=== PATIENT | female | born 1970 | race Caucasian/White ===

== ENCOUNTER 2022-01-27 08:15 | Outpatient (RCR) | payer OTHER, SELFPAY | END 2022-03-15 15:14 | disposition home or self-care (01) | PROVIDERS: PCP Family Medicine; Referring Provider Physician Assistant Surgical; Visit Provider Physician Assistant | DX: S82.142D Displaced bicondylar fracture of left tibia, subsequent encounter for closed fracture with routine healing (principal); Z51.89 Encounter for other specified aftercare | CPT/HCPCS: 97110; 97116; 97140; 97163 ==

== ENCOUNTER 2022-03-06 10:13 | Outpatient (CLI) | payer OTHER, SELFPAY ==
[2022-03-06 11:55] LABS: Cholesterol* 261 mg/dL (90-199)
[2022-03-06 11:56] LABS: Glucose* 101 mg/dL (60-115); HDL Cholesterol* 60 mg/dL (>=50); LDL Cholesterol Calculated 176 mg/dL (<100); Triglycerides* 126 mg/dL (40-149)
== END 2022-03-06 10:14 | disposition home or self-care (01) ==
PROVIDERS: PCP Family Medicine; Visit Provider Obstetrics & Gynecology
DX: Z01.419 Encounter for gynecological examination (general) (routine) without abnormal findings (principal); E78.5 Hyperlipidemia, unspecified; Z13.1 Encounter for screening for diabetes mellitus
CPT/HCPCS: 80061; 82947

== ENCOUNTER 2023-04-10 10:56 | Outpatient (CLI) | payer OTHER, SELFPAY | END 2023-04-10 10:57 | disposition home or self-care (01) | PROVIDERS: PCP Family Medicine; Visit Provider Obstetrics & Gynecology | DX: Z01.419 Encounter for gynecological examination (general) (routine) without abnormal findings (principal); Z13.1 Encounter for screening for diabetes mellitus; Z13.6 Encounter for screening for cardiovascular disorders | CPT/HCPCS: 80061; 82947 ==

== ENCOUNTER 2023-05-17 10:11 | Outpatient (CLI) | payer OTHER, SELFPAY | END 2023-05-17 10:12 | disposition home or self-care (01) | PROVIDERS: PCP Family Medicine; Visit Provider Family Medicine | DX: E78.5 Hyperlipidemia, unspecified (principal); K59.00 Constipation, unspecified; K62.5 Hemorrhage of anus and rectum | CPT/HCPCS: 82728; 84443 ==

== ENCOUNTER 2023-10-07 16:36 | Emergency (ER) | payer OTHER, SELFPAY ==
[2023-10-07 16:39] VITALS: BP 138/89; PULSE 58; RESP 16; TEMP 35.9; O2SAT 96; BMI 33.9
--- NOTE | 2023-10-07 17:10 | CRLHL7_ITS ---
For Patients: As a result of the Century Cures Act, medical imaging exams and procedure reports are released immediately into your electronic medical record. You may view this report before your referring provider. If you have questions, please contact your health care provider. DATE: 10/07/2023 CLINICAL HISTORY: Patient with vertigo. TECHNIQUE: Standard helical CT image acquisition of the neck up to the skull base after bolus intravenous contrast enhancement. 2D and 3D MIP images for post-processing were performed and interpreted on an independent workstation and 3D images were permanently archived. COMPARISON: CT same day. FINDINGS: The origins of the great vessels from the aortic arch are patent. The origin of the right vertebral artery is patent. The origin of the left vertebral artery is patent. The common carotid arteries are patent. There is no stenosis at the origin of the right internal carotid artery. There is no stenosis at the origin of the left internal carotid artery. The rest of the cervical segments of the internal carotid arteries are patent up to the skull base. The left vertebral artery is dominant. The cervical segments of the vertebral arteries are patent up to the skull base. The visualized lung apices are unremarkable. The thyroid gland demonstrates 1.7cm hypodense nodule in its right lobe. The soft tissues of the neck are unremarkable. There are degenerative changes in the cervical spine. IMPRESSION: 1. Patent cervical vasculature. 2. 1.7cm hypodense right thyroid nodule. Further evaluation with ultrasound is recommended. Please note that all CT scans at this facility use dose modulation, iterative reconstruction, and/or weight-based dosing when appropriate to reduce radiation dose to as low as reasonably achievable. Dictated by Tito Felix MD @ 10/07/2023 7:05:22 PM (Electronically Signed)
--- NOTE | 2023-10-07 17:10 | CRLHL7_ITS ---
For Patients: As a result of the Century Cures Act, medical imaging exams and procedure reports are released immediately into your electronic medical record. You may view this report before your referring provider. If you have questions, please contact your health care provider. Indication: Fall, vertigo. Technique: Noncontrast CT of the head with multiplanar reconstruction utilizing bone and soft tissue algorithms. Comparison: None available. Findings: No acute intracranial hemorrhage. The park-white matter interface is preserved. The ventricles are normal in size. There is no significant midline shift. No calvarial fracture is identified. The orbits are unremarkable. The imaged paranasal sinuses and mastoid air cells are predominantly clear. Impression: No acute intracranial abnormality. Please note that all CT scans at this facility use dose modulation, iterative reconstruction, and/or weight-based dosing when appropriate to reduce radiation dose to as low as reasonably achievable. Dictated by Will Liang MD @ 10/07/2023 6:10:00 PM (Electronically Signed)
--- NOTE | 2023-10-07 17:10 | CRLHL7_ITS ---
For Patients: As a result of the Century Cures Act, medical imaging exams and procedure reports are released immediately into your electronic medical record. You may view this report before your referring provider. If you have questions, please contact your health care provider. DATE: 10/07/2023 CLINICAL HISTORY: Patient with vertigo. TECHNIQUE: Standard helical CT image acquisition through the intracranial circulation following intravenous administration of contrast material with bolus tracking. 2D and 3D MIP images for post-processing were performed and interpreted on an independent workstation and 3D images were permanently archived. COMPARISON: CT same day. FINDINGS: There is no cerebral aneurysm or large vessel occlusion. The right internal carotid artery is normal. The right middle cerebral artery and its branches are normal. The right anterior cerebral artery and its branches are normal. The left internal carotid artery is normal. The left middle cerebral artery and its branches are normal. The left anterior cerebral artery and its branches are normal. The anterior communicating artery is well visualized and appears normal. The right vertebral artery and PICA are normal. The left vertebral artery and PICA are normal. The left vertebral artery is dominant. The basilar artery is patent and appears normal. The right posterior cerebral artery is normal. The left posterior cerebral artery is normal. The visualized venous structures are patent. IMPRESSION: Patent proximal intracranial vasculature without intracranial aneurysms. Please note that all CT scans at this facility use dose modulation, iterative reconstruction, and/or weight-based dosing when appropriate to reduce radiation dose to as low as reasonably achievable. Dictated by Tito Felix MD @ 10/07/2023 7:06:39 PM (Electronically Signed)
--- NOTE | 2023-10-07 17:16 | ED_ITS ---
HPI - General Adult General Chief complaint: Dizziness/Vertigo Stated complaint: Day 12 of Vertigo, Neida said go to ED Time Seen by Provider: 10/07/23 16:38 Source: patient Mode of arrival: ambulatory Limitations: no limitations History of Present Illness HPI narrative: 53-year-old female coming in today complaining of day 12 of vertigo. Patient states that she sits completely still the vertical does go away with any movement to any side the vertigo comes back. She describes as a room spinning around her. Makes her feel nauseated but she denies vomiting. States that for the last 12 days she has tried to move his little as possible. She denies any fevers or chills. She denies headache. She denies changes in her vision. She denies any ringing in her ears or muffled hearing. She denies difficulty eating or breathing. She denies any chest discomfort. She denies any neck pain. She denies any new physical activities. She states she has been sleeping very well at night. Patient does have an adie pupil on the right side. Related Data Previous Rx's ?Medication ?Instructions ?Recorded meclizine 25 mg tablet 25 mg PO BID #10 tabs 09/27/23 ondansetron 4 mg disintegrating 4 mg PO Q8H PRN nausea and 09/27/23 tablet vomiting #10 tabs Allergies Allergy/AdvReac Type Severity Reaction Status Date / Time No Known Allergies Allergy Verified 10/07/23 17:34 Review of Systems Status of ROS: Reports: 10 or more systems reviewed and unremarkable except as noted in History and below [facility] Medical History Genetic testing ?Z13.79 - Encounter for other screening for genetic and chromosomal anomalies (ICD-10) Dyslipidemia ?E78.5 - Hyperlipidemia, unspecified (ICD-10) Tibial plateau fracture, left (10/2021) ?S82.142A - Displaced bicondylar fracture of left tibia, initial encounter for closed fracture (ICD-10) History of herniated intervertebral disc ?Z87.39 - Personal history of other diseases of the musculoskeletal system and connective tissue (ICD-10) Malignant neoplasm of both breasts (11/2016) ?C50.911 - Malignant neoplasm of unspecified site of right female breast (ICD-10) ?C50.912 - Malignant neoplasm of unspecified site of left female breast (ICD- 10) Surgical History Status post bilateral mastectomy (12/27/16) ?Z90.13 - Acquired absence of bilateral breasts and nipples (ICD-10) History of reconstruction of both breasts (04/2017) ?Z98.890 - Other specified postprocedural states (ICD-10) History of dilation and curettage (2005) ?Z98.890 - Other specified postprocedural states (ICD-10) History of bilateral oophorectomy (03/2017) ?Z90.722 - Acquired absence of ovaries, bilateral (ICD-10) Family History Father Basal cell carcinoma Myocardial infarction Diabetes Sister Basal cell carcinoma Depression Dave syndrome Aunt Breast cancer Family/Other Breast cancer Brother Colon cancer, Onset Age: 61 Bipolar disorder Family/Other Dave syndrome Ovarian cancer Social History Narrative: , 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, 2 kids Does not exercise Non-smoker, quit 2010 years very light smoking Rare alcohol use What is your current living situation?: I presently have a place to live Problems where you live: no known problems In the past 12 months, utilities in danger of being shut off: no In past 12 months, lack of transportation kept you from medical appts, meetings, work, or getting things needed for daily living: no In the past 12 mos, have been you worried that your food would run out before you had money to buy more?: never true In the past 12 mos, the food you bought just didn't last and you didn't have money to buy more?: never true Highest level of school completed/degree received: high school graduate Smoking Status: Never smoker Do you use any of these nicotine containing products: None Second hand tobacco smoke exposure: No How often do you have a drink containing alcohol: monthly or less AUDIT-C Alcohol total score: 1 Non-prescribed substance use: denies use Are you now , , , , never or living with a partner: Social isolation score (0-1 are the most socially isolated patients): 0 How often does anyone, including family, friends and others, physically hurt you : never How often does anyone, including family, friends and others, insult or talk down to you: never How often does anyone, including family, friends and others, threaten you with harm: never How often does anyone, including family, friends and others, scream or curse at you: never Little interest or pleasure in doing things: not at all Feeling down, depressed, or hopeless: not at all Do you think of yourself as: straight/heterosexual Gender Identity: female Exam Narrative: Exam Narrative: Well-nourished well-developed patient in no acute distress. Alert and oriented. Answers questions appropriately. Mood and affect are appropriate. Thoughts are goal oriented and rational. No tangential or magical thinking noted. Patient speaks in full sentences without needing to catch her breath. Patient sits very still. Patient complains of vertigo if she looks slightly to the left or to the right. HEENT: Normocephalic atraumatic. Pupils are round reactive to light on the left, the right pupil does not react at all. Patient states that this is normal for her.. Extraocular muscles are intact. Conjunctivae are moist without any icterus noted. Moist mucous membranes. Posterior pharynx is normal. Neck is soft without any lymphadenopathy or thyromegaly. No masses are appreciated. Cardiovascular: Heart is regular rate and rhythm S1 and S2 are present without any murmurs. Lungs: Clear to auscultation bilaterally no wheezes rhonchi or rales are appreciated. Abdomen: Soft and nontender nondistended with normal bowel sounds. Extremities: Bilateral lower extremities are without edema. Skin: Well perfused without any obvious rashes. Strength is 5/5 of the upper and lower extremities. Reflexes are 2+ and symmetric at the knees. Cranial nerves 3-12 are normal. [id number] is normal but causes vertigo. Patient has no nystagmus either horizontally or vertically at rest. Hallpike maneuver was done and patient has almost vertical nystagmus when she lays back and looks to the left. This causes significant vertigo. She is symptomatic when she goes to the right but she has no nystagmus and she states that the symptoms are not near what they are when she goes to the left. Const: Vital Signs, click to edit/add: Vital Signs - 24 hr 10/07/23 16:39 10/07/23 18:02 10/07/23 18:03 Temperature 96.7 F L Pulse Rate 49 L 51 L Pulse Rate [Right Pulse Oximeter] 58 L Respiratory Rate 16 Blood Pressure 145/77 H Blood Pressure [Ri ght Upper Arm] 138/89 Pulse Oximetry 96 99 98 Oxygen Delivery Me thod Room Air 10/07/23 18:15 Temperature Pulse Rate 46 L Pulse Rate [Right Pulse Oximeter] Respiratory Rate Blood Pressure Blood Pressure [Ri ght Upper Arm] Pulse Oximetry 96 Oxygen Delivery Me thod Course Course ED Course: Given patient's slightly abnormal Hallpike maneuver test with vertical nystagmus when going to the left and the duration of her symptoms, I do not think that it would be unreasonable for us to rule out a stroke or brain pathology. Therefore head CT, head and neck CTA were all ordered. Head CT was unremarkable. Lab work included a CBC which was unremarkable. Normal chemistries. Glucose within normal limits at 117. Normal LFTs. Normal troponin TSH: Vital Signs Vital signs: Initial Vital Signs Temperature 96.7 F L 10/07/23 16:39 Temperature Source Temporal Artery Scan 10/07/23 16:39 Pulse Rate 58 L 10/07/23 16:39 Pulse Rhythm Regular 10/07/23 16:39 Pulse Strength 3+ Normal 10/07/23 16:39 Respiratory Rate 16 10/07/23 16:39 Blood Pressure 138/89 10/07/23 16:39 Blood Pressure Mean 105 10/07/23 16:39 Blood Pressure Position Sitting 10/07/23 16:39 Pulse Oximetry 96 10/07/23 16:39 Oxygen Delivery Method Room Air 10/07/23 16:39 Vital Signs Temperature 96.7 F L 10/07/23 16:39 Pulse Rate 58 L 10/07/23 16:39 Respiratory Rate 16 10/07/23 16:39 Blood Pressure 138/89 10/07/23 16:39 Pulse Oximetry 96 10/07/23 16:39 Oxygen Delivery Method Room Air 10/07/23 16:39 Temperature 96.7 F L 10/07/23 16:39 Pulse Rate 46 L 10/07/23 18:15 Respiratory Rate 16 10/07/23 16:39 Blood Pressure 145/77 H 10/07/23 18:02 Pulse Oximetry 96 10/07/23 18:15 Oxygen Delivery Method Room Air 10/07/23 16:39 Medical Decision Making Lab Data Labs: Lab Results 10/07/23 Range/Units 17:15 WBC 5.36 (4.50-11.00) K/uL RBC 4.52 (4.00-5.20) m/uL Hgb 14.0 (12.0-16.0) gm/dL Hct 39.9 (33.0-51.0) % MCV 88 (80-100) fL MCH 31 (26-34) pg MCHC 35 (32-36) gm/dL RDW Coeff of William 11.4 L (11.5-15.5) % Plt Count 289 (140-440) K/uL Neut % (Auto) 50.0 (42.0-72.0) % Lymph % (Auto) 38.2 (20-44) % Kane % (Auto) 6.9 (0.0-11.0) % Eos % (Auto) 4.3 (0.0-7.0) % Baso % (Auto) 0.4 (0.0-3.0) % Neut # (Auto) 2.68 (1.7-7.0) K/uL Lymph # (Auto) 2.05 (0.90-2.90) K/uL Kane # (Auto) 0.40 (0.00-0.90) K/UL Eos # (Auto) 0.23 (0.00-0.50) K/uL Baso # (Auto) 0.02 (0.00-0.30) K/uL Abs Immat Gran (auto) 0.01 (0.00-0.30) K/uL Imm/Tot Granulo (auto) 0.2 % Sodium 137 (135-149) mmol/L Potassium 3.6 (3.6-5.1) mmol/L Chloride 106 (96-114) mmol/L Carbon Dioxide 25 (20-32) mmol/L Anion Gap 6 L (7-15) mEq/L BUN 12 (7-30) mg/dL Creatinine 0.7 (0.5-1.5) mg/dL Estimated Creat Clear 86.01 Estimated GFR 103 ml/min Glucose 117 H (60-115) mg/dL Lactate 1.3 (0.5-1.9) mmol/L Calcium 8.9 (8.4-10.6) mg/dL Total Bilirubin 0.8 (0.1-1.5) mg/dL Direct Bilirubin 0.4 (0.0-0.5) mg/dL AST 21 (12-35) U/L ALT 20 (4-35) U/L Alkaline Phosphatase 66 (40-150) U/L Troponin I < 0.01 L (0.01-0.04) ng/mL C-Reactive Protein 0.6 (0.5-1.0) mg/dL Total Protein 7.3 (6.0-8.3) g/dL Albumin 4.4 (3.3-5.0) g/dL Imaging Data CT scan - head: Attestation: I have reviewed the pertinent imaging results. Radiologist's impression: Study:?CT-Head W/O-10/07/2023 5:41:23 PM Ordering Physician:Jory Gimenez Final Report: Indication: Fall, vertigo. Technique: Noncontrast CT of the head with multiplanar reconstruction utilizing bone and soft tissue algorithms. Comparison: None available. Findings: No acute intracranial hemorrhage. The park-white matter interface is preserved. The ventricles are normal in size. There is no significant midline shift. No calvarial fracture is identified. The orbits are unremarkable. The imaged paranasal sinuses and mastoid air cells are predominantly clear. Impression: No acute intracranial abnormality. CT angio head: Attestation: I have reviewed the pertinent imaging results. Radiologist's impression: Study:?CT-Head Angio W/ 95CC [id number]/26/2024 5:43:20 PM Ordering Physician:Jory Gimenez Preliminary Report: CTA Head: 1. No significant arterial stenosis. 2. No intracranial aneurysm or vascular malformation. 3. Anatomic variant dominant left vertebral artery with right vertebral artery terminating largely in PICA. CTA Neck: 1. No traumatic arterial injury or dissection. 2. Atherosclerotic calcification at the carotid bifurcations without significant stenosis by NASCET criteria. 3. Incidentally noted 1.6 cm hypodense right thyroid nodule. Recommend further ultrasound characterization if not already performed. CT angio neck: Attestation: I have reviewed the pertinent imaging results. Radiologist's impression: Study:?CT-Neck Angio Angio W/ 95CC [id number]/2024 5:43:24 PM Ordering Physician:Jory Gimenez Preliminary Report: CTA Head: 1. No significant arterial stenosis. 2. No intracranial aneurysm or vascular malformation. 3. Anatomic variant dominant left vertebral artery with right vertebral artery terminating largely in PICA. CTA Neck: 1. No traumatic arterial injury or dissection. 2. Atherosclerotic calcification at the carotid bifurcations without significant stenosis by NASCET criteria. 3. Incidentally noted 1.6 cm hypodense right thyroid nodule. Recommend further ultrasound characterization if not already performed. Discharge Plan Discharge Clinical Impression: Thyroid nodule, Vertigo Patient Disposition: Home, Self-Care Condition: Unchanged Additional Instructions: Episodes of vertigo in last several weeks before they resolved. Recommend continue doing the Leia maneuver and even seeking out a physical therapist to help you with this. Continue meclizine and can also add Benadryl 25 mg twice a day. Increase daily water intake. You do have a 1.6 cm thyroid nodule, follow-up with your primary care provider to have this evaluated if you have not already done so. Prescriptions: No Action ondansetron 4 mg tablet,disintegrating 4 mg PO Q8H PRN (Reason: nausea and vomiting) Qty: 10 0RF meclizine 25 mg tablet 25 mg PO BID Qty: 10 0RF Follow Up/Referrals: Elvia Ivy MD [Primary Care Provider] - Stand Alone Forms: [employer] Info Instructions
--- OUTSIDE RECORDS SUMMARY | 2023-10-07 17:23 | XMS_ITS | Referral Summary ---
Author Organization [facility] Address [address] [place] [address] Care Team Providers Care Dressmaking Teacher Name Role Phone Unavailable Primary Care Provider Unavailabl e Source Comments Patient records contain information from all sites at [facility]. For routine questions regarding patient records, call [phone] during business hours, M-F 8:00 AM - 5:00 PM Central Time. Record requests for emergency care only can be directed to [phone] at any time.[facility] Allergies No known active allergies Medications Medication Sig Dispensed Refills Start Date End Date Status letrozole (FEMARA) 2.5 mg tablet Take 1 tablet (2.5 mg total) by mouth daily. 90 tablet 3 12/01/2020 Active Active Problems Problem Noted Date Diagnosed Date Abnormal Magnetic Resonance Imaging Breast 09/23 Lump In Left Breast Overlapping Quadrants 2020 Pain Hip Left 06/01/2020 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 020 Cancer Staging:Pathologic:Stage IA(pT1b, pN0, cM0, G2, ER+, MD+, HER2-) - Signed by Jose Angel Zaidi M.D. on 11/12/2019 Osteopenia 11/12/2019 Social History Tobacco Use Types Packs/Day Years Used Date Smoking Tobacco: Former Cigarettes Smokeless Tobacco: Never Tobacco Cessation:Counseling Given: Not Answered Social Connection and Isolat ion Panel [NHANES] Answer Date Recorded In a typical week, how many times do you talk on the phone with family, friends, or neighbors? More than three times a week 01/26/2021 How often do you get togethe r with friends or relatives? More than three times a week 01/26/2021 How often do you attend chur ch or judaism services? 1 to 4 times per year 01/26/2021 Do you belong to any clubs o r organizations such as congregational groups, unions, fraternal or athletic groups, or school groups? No 01/26/2021 How often do you attend meet ings of the clubs or organizations you belong to? Never 01/26/2021 Are you , , di vorced, , never , or living with a partner? 01/26/2021 AUDIT-C Answer Date Recorded Q1: How often do you have a drink containing alc ohol? Monthly or less 01/26/2021 Q2: How many drinks containi ng alcohol do you have on a typical day when you are drinking? 1 or 2 01/26/2021 Q3: How often do you have si x or more drinks on one occasion? Never 01/26/2021 Overall Financial Resource Strain (CARDIA) Answe r Date Recorded How hard is it for you to pa y for the very basics like food, housing, medical care, and heating? Not hard at all 01/26/2021 [facility] - Occupational Stress Questionnaire Answer Date Recorded Do you feel stress - tense, restless, nervous, or anxious, or unable to sleep at night because your mind is troubled all the time - these days? Not at all 01/26/2021 Exercise Vital Sign Answer Date Recorde d On average, how many days pe r week do you engage in moderate to strenuous exercise (like a brisk walk)? 5 days 01/26/2021 On average, how many minutes do you engage in exercise at this level? 30 min 01/26/2021 Hunger Vital Sign Answer Date Recorded Within the past 12 months, y ou worried that your food would run out before you got the money to buy more. Never true 01/27/20 21 Within the past 12 months, t he food you bought just didn't last and you didn't have money to get more. Never true 01/26/2021 PRAPARE - Transportation Answer Date Re corded In the past 12 months, has l ack of transportation kept you from medical appointments or from getting medications? No 01/12 In the past 12 months, has l ack of transportation kept you from meetings, work, or from getting things needed for daily living? No 01/26/2021 Housing Stability Vital Sign Answer David e Recorded In the last 12 months, was t here a time when you were not able to pay the mortgage or rent on time? No 01/26/2021 In the last 12 months, how many places have you lived? 2 01/26/2021 In the last 12 months, was t here a time when you did not have a steady place to sleep or slept in a longterm (including now)? No 01/26/2021 Nutrition Answer Date Recorded Nutrition: EVOO Fat Source No 01/26 On average, how many serving s of fruits and vegetables do you eat per day (serving size is equal to 1 cup or approximately the size of a tennis ball)? 2-3 01/26/2021 Dental Answer Date Recorded Dental: Regular Dentist Yes 05/18/19 Employment Answer Date Recorded Employment status Employed and actively working without restrictions 01/26/2021 Education Answer Date Recorded What is the highest level of school you have completed or the highest degree you have received? 12th grade 01/26/2021 Sex and Gender Information Value Date Recorded Sex Assigned at Female 01/26/2021 9:03 AM CDT Gender Identity Female 05/28/2020 9:20 AM SALVAGE WINDER AND INSPECTOR Sexual Orientation Straight 05/28/2020 9: 20 AM SALVAGE WINDER AND INSPECTOR Last Filed Vital Signs Vital Sign Reading Time Taken Comments Blood Pressure 110/60 12/27/2021 3:02 PM CDT Pulse 68 12/27/2021 3:02 PM CDT Temperature 36.2 ??C (97.2 ??F) 12/01/2020 3:16 PM CD T Respiratory Rate - - Oxygen Saturation - - Inhaled Oxygen Concentration - - Weight 94.2 kg (207 lb 10.8 oz) 12/01/2020 3:16 PM CDT Height 168 cm (5' 6.14) 09/23/2020 8:08 AM CDT Body Mass Index 33.38 09/23/2020 8:08 AM CDT Plan of Treatment Not on file Medical Devices Implanted Type Area Clinical Medical Assistant Device Identifier Shelf Expiration Date Model / Serial / Lot Breast Implant Breast Implant Bilateral: Breast [employer] Description:[employer] breast implants LT ref [id number] RT ref [id number] Procedures Procedure Name Priority Date/Time Associated Diagnosis Comments MR BREAST BILATERAL WITHOUT AND WITH IV CONTRAST RAD - Routine (most inpatients and all outpatients) 03/31/2021 3:55 PM SALVAGE WINDER AND INSPECTOR 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 (HCC) Abnormal Magnetic Resonance Imaging Breast COMPREHENSIVE METABOLIC PANEL, S/P Routine 11/12/2019 2:52 PM CDT 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 (HCC) Osteopenia from Last 3 Months or Most Recently Relevant to Health Maintenance Results * MR Breast Bilateral without and with IV Contrast (03/31/2021 3:55 PM SALVAGE WINDER AND INSPECTOR) Anatomical Region Laterality Modality Breast, Breast Imaging RST L OS, Breast Imaging ARZ LOS, Breast Imaging FLA LOS Bilateral Magnetic Resonance 04/01/2021 9:58 AM SALVAGE WINDER AND INSPECTOR Impressions 04/01/2021 1:47 PM SALVAGE WINDER AND INSPECTOR 1. Postoperative changes bilateral mastectomy with bilateral subpectoral silicone implant reconstruction. 2. Enhancing foci in both breasts with adjacent oil cysts, compatible with fat necrosis. RECOMMENDATION: ??Individualized Recommendation Consider continued imaging follow-up if physical exam findings change. ASSESSMENT: ??BI-RADS: 2: Benign. 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 Six-month MRI follow-up. HORMONAL STATUS: ??Hysterectomy. No hormone replacement therapy. COMPARISON: ??Prior exam(s) were available and reviewed for comparison. TECHNIQUE: ??Dynamic enhanced protocol using IV contrast administration with T1 and T2-weighted images and CAD image analysis. FIBROGLANDULAR TISSUE: Postoperative change bilateral mastectomy with bilateral subpectoral silicone implant reconstruction. BACKGROUND PARENCHYMAL ENHANCEMENT: ??e. N/A FINDINGS: RIGHT BREAST: ??Postoperative change mastectomy with subpectoral silicone implant reconstruction. No MRI evidence for intracapsular or extracapsular rupture. No alton-implant fluid collection. The previously seen focus of enhancement in the superior pole of the reconstructed breast has decreased in size, measuring 4 mm today compared to 6 mm previously. There is adjacent presumed oil cyst, corresponding with finding at the 12:00 position on ultrasound 10/04/2020, findings are compatible with fat necrosis. RIGHT AXILLA: ??No right axillary lymphadenopathy. ?? LEFT BREAST: ??Postoperative change mastectomy with subpectoral silicone implant reconstruction. No evidence for intracapsular or extracapsular rupture. No alton-implant fluid collection. The 5 mm enhancing foci in the upper inner pole of the reconstructed left breast are stable to slightly decreased in size, with adjacent presumed oil cyst, corresponding with the findings in the left breast 9:00 and 10:00 position on ultrasound 10/04/2020, findings are compatible with fat necrosis. LEFT AXILLA: ??No left axillary lymphadenopathy. ?? CHEST WALL: ??No internal mammary lymphadenopathy. ?? Procedure Note Padmaja Flores M.D. - 04/01/2021 EXAM: MR BREAST BILATERAL WITHOUT AND WITH IV CONTRAST INDICATION: MRI follow-up HISTORY: History of bilateral mastectomy for left breast invasiveductal carcinoma in 2017, status post bilateral mastectomy and bilateralimplant reconstruction. Six-month MRI follow-up. HORMONAL STATUS: Hysterectomy. No hormone replacement therapy. COMPARISON: Prior exam(s) were available and reviewed for comparison. TECHNIQUE: Dynamic enhanced protocol using IV contrast administrationwith T1 and T2-weighted images and CAD image analysis. FIBROGLANDULAR TISSUE: Postoperative change bilateral mastectomy withbilateral subpectoral silicone implant reconstruction. BACKGROUND PARENCHYMAL ENHANCEMENT: e. N/A FINDINGS: RIGHT BREAST: Postoperative change mastectomy with subpectoral siliconeimplant reconstruction. No MRI evidence for intracapsular or extracapsularrupture. No alton-implant fluid collection. The previously seen focus of enhancement inthe superior pole of the reconstructed breast has decreased in size, measuring4 mm today compared to 6 mm previously. There is adjacent presumed oil cyst, corresponding with finding at the 12:00 position on ultrasound10/04/2020, findings are compatible with fat necrosis. RIGHT AXILLA: No right axillary lymphadenopathy. LEFT BREAST: Postoperative change mastectomy with subpectoral siliconeimplant reconstruction. No evidence for intracapsular or extracapsular rupture.No alton-implant fluid collection. The 5 mm enhancing foci in the upper innerpole of the reconstructed left breast are stable to slightly decreased in size,with adjacent presumed oil cyst, corresponding with the findings in the leftbreast 9:00 and 10:00 position on ultrasound 10/04/2020, findings are compatiblewith fat necrosis. LEFT AXILLA: No left axillary lymphadenopathy. CHEST WALL: No internal mammary lymphadenopathy. IMPRESSION: 1. Postoperative changes bilateral mastectomy with bilateral subpectoral silicone implant reconstruction. 2. Enhancing foci in both breasts with adjacent oil cysts, compatible withfat necrosis. RECOMMENDATION: Individualized Recommendation Consider continued imaging follow-up if physical exam findings change. ASSESSMENT: BI-RADS: 2: Benign. Jose Angel GUERRERO MRI PROCEDURES * Comprehensive Metabolic Panel (11/12/2019 2:52 PM CDT) Potassium, P 4.2 3.6 - 5.2 mmol/L 11/12/2019 4:21 PM CDT OWAT Sodium, P 141 135 - 145 mmol/L 11/12/2019 4:21 PM CDT OW[facility] Chloride, P 102 98 - 107 mmol/L 11/12/2019 4:21 PM CDT OWAT Bicarbonate, P 26 22 - 29 mmol/L 11/12/2019 4:20 PM CDT OW[facility] Anion Gap, P 13 7 - 15 11/12/2019 4:21 PM CDT [facility] BUN (Blood Urea Nitrogen), P 15 6 - 21 mg/dL 11/12/2019 4:20 PM CDT [facility] Creatinine 0.84 0.59 - 1.04 mg/dL 11/12/2019 4:20 PM CDT OWAT eGFR-Black/ >90 >=60 mL/min/BS A 11/12/2019 4:20 PM CDT [facility] Comment: ----ADDITIONAL INFORMATION---- Estimated GFR calculated using the 2009 CKD_EPI creatinine equation. eGFR Non-Black/ 81 >=60 mL/min/BS A 11/12/2019 4:20 PM CDT OWAT Comment: ----ADDITIONAL INFORMATION---- Estimated GFR calculated using the 2009 CKD_EPI creatinine equation. Calcium, Total, P 9.8 8.6 - 10.0 mg/dL 11/12/2019 4:20 PM CDT OW[facility] Glucose, P 109 70 - 140 mg/dL 11/12/2019 4:20 PM CDT [facility] Protein, Total, P 7.0 6.3 - 7.9 g/dL 11/12/2019 4:20 PM CDT OW[facility] Albumin, P 4.6 3.5 - 5.0 g/dL 11/12/2019 4:20 PM CDT [facility] Aspartate Aminotransferase (AST), P 18 8 - 43 U/L 11/12/2019 4:20 PM CDT [facility] Alkaline Phosphatase, P 79 35 - 104 U/L 11/12/2019 4:20 PM CDT [facility] Alanine Aminotransferase (ALT), P 18 7 - 45 U/L 11/12/2019 4:20 PM CDT OWAT Bilirubin, Total, P 0.2 <=1.2 mg/dL 11/12/2019 4:20 PM CDT OWAT Blood (Blood, Venous) 11/12/2019 2:52 PM CDT 11/12/2019 2:55 PM CDT Jose Angel Zaidi M.D. LAB BLOOD ADD-ON [facility] [address] [place] [address], [place] [facility] [place] [address] [place] [address] from Last 3 Months or Most Recently Relevant to Health Maintenance
--- OUTSIDE RECORDS SUMMARY | 2023-10-07 17:23 | XMS_ITS | Clinical Summary ---
Author Organization [facility] Address [address] [place] [address] Care Team Providers Care Bindery Operator Name Role Phone Unavailable Primary Care Provider Unavailabl e Source Comments Patient records contain information from all sites at [facility]. For routine questions regarding patient records, call [phone] during business hours, M-F 8:00 AM - 5:00 PM Central Time. Record requests for emergency care only can be directed to [phone] at any time.[facility] Allergies No known active allergies Medications Medication [...] Cancer Staging:Pathologic:Stage IA(pT1b, pN0, cM0, G2, ER+, NV+, HER2-) - Signed by Jose Angel Zaidi [...] often do you attend chur ch or restorationist services? 1 to 4 times per year 01/26/2021 Do you belong to any clubs o r organizations such as adventism groups, unions, fraternal or athletic groups, or [...] and heating? Not hard at all 01/26/2021 [facility] Occupat ional Health - Occupational Stress [...] place to sleep or slept in a correction (including now)? No 01/26/2021 Nutrition Answer Date [...] CDT Gender Identity Female 05/28/2020 9:20 AM YARD LABORER Sexual Orientation Straight 05/28/2020 9: 20 AM YARD LABORER Last Filed Vital Signs Vital Sign Reading [...] 09/23/2020 8:08 AM CDT Plan of Treatment Health Maintenance Due Date Last Done Comments CT Colonography 1969 Cologuard 1969 Colonoscopy 1969 Colorectal Cancer Screening 1969 FIT 1969 HIV Screening 1969 Hepatitis C Screening 1969 Lipid (Cholesterol) Screening 1969 Pneumococcal vaccine (0-64 y ears) (1 of 2 - PCV) 1975 Hepatitis B Vaccines (1 of 3 - 19+ 3-dose series) 1988 Zoster Vaccines (1 of 2) 1988 Fasting Glucose for Diabetes Screening 11/11/2022 11/12/2019 COVID-19 Vaccine (4 - 2022-2 4 season) 2023 03/03/2021, 08/24/2020, 08/03/2020 Influenza Vaccine (#1) 2023 4, 03/02/2008, 03/20/2007 Depression Screening (Annual PHQ-2) 05/14/2023 DTaP,Tdap,and Td Vaccines (2 - Td or Tdap) 09/18/2032 09/18/2022 Mammogram Discontinued 03/31/2021, 09/11, 11/10/2016, Additional history exists Medical Devices Implanted Type Area Diagnostic Tech Device Identifier Shelf Expiration Date Model / Serial / Lot Breast Implant Breast Implant Bilateral: Breast [employer] Description:[employer] l breast implants LT ref [id number] RT ref [id number] SN [id number] [id number] Procedures Procedure Name Priority Date/Time Associated Diagnosis Comments MR BREAST BILATERAL WITHOUT AND WITH IV CONTRAST RAD - Routine (most inpatients and all outpatients) 03/31/2021 3:55 PM YARD LABORER 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 (HCC) Abnormal Magnetic Resonance Imaging Breast COMPREHENSIVE METABOLIC PANEL, S/P Routine 11/12/2019 2:52 PM CDT 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 (HCC) Osteopenia from Last 3 Months or Most Recently Relevant to Health Maintenance Results * MR Breast Bilateral without and with IV Contrast (03/31/2021 3:55 PM YARD LABORER) Anatomical Region Laterality Modality Breast, Breast Imaging RST L OS, Breast Imaging ARZ LOS, Breast Imaging FLA LOS Bilateral Magnetic Resonance 04/01/2021 9:58 AM YARD LABORER Impressions 04/01/2021 1:47 PM YARD LABORER 1. Postoperative changes bilateral mastectomy with bilateral subpectoral silicone implant reconstruction. 2. Enhancing foci in both breasts with adjacent oil cysts, compatible with fat necrosis. RECOMMENDATION: ??Individualized Recommendation Consider continued imaging follow-up if physical exam findings change. ASSESSMENT: ??BI-RADS: 2: Benign. Narrative 04/01/2021 1:47 PM YARD LABORER EXAM: ??MR BREAST BILATERAL WITHOUT AND WITH [...] Jose Angel Zaidi M.D. [facility] [address] [place] [address], [place] [facility] [facility] [place] [address] [place] [address] from Last 3 Months or Most Recently Relevant to Health Maintenance
--- OUTSIDE RECORDS SUMMARY | 2023-10-07 17:23 | XMS_ITS ---
Author Organization [facility] Address [address] [place] [address] Care Team Providers Care Evaluation Specialist Name Role Phone Unavailable Unavailable Unavailable Surgery Details Not on file Complications Check Surgery Details section. Procedure Estimated Blood Loss Check Surgery Details section. Procedure Findings Check Surgery Details section. Procedure Specimens Taken Check Surgery Details section.
--- OUTSIDE RECORDS SUMMARY | 2023-10-07 17:23 | XMS_ITS | Clinical Summary ---
Author Organization [employer] [facility] Address [place], [place] [address] Care Team Providers Care Bottle Caser Name Role Phone Pcp, No Primary Care Provider Unavailabl e Allergies No known active allergies Medications Medication Sig Dispensed Refills Start Date End Date Status letrozole (FEMARA) 2.5 mg tablet Take 2.5 mg by mouth once daily. 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 Centralized Nurse Triage Pcp, No Dizziness from Last 3 Months Immunizations Name Administration Dates Next Due Influenza, IIV3 (Age >=3 years) 03/02/2008,03/20 Td (Age >=7 Years) 08/05/2003 Family History Medical History Relation Name Comments Cancer-colon Maternal Grandmother Cancer-breast Other paternal cousi n, maternal great aunt Genetic Other mother: A\T\W~f ather: skin CA, not melanoma~grprs: 70s GF dec of [place], GM with COPD, GF young of a [place], GM with asthma~sibs: A\T\W Cancer-breast Paternal Aunt late 60s Other Sister Constipation Relation Name Status Comments Maternal Grandmother Other Paternal Aunt Sister Social History Tobacco Use Types Packs/Day Years Used Date Smoking Tobacco: Former Cigarettes Q uit: 10/13/2011 Smokeless Tobacco: Never Tobacco Cessation:Counseling Given: Yes Comments:2 cigarettes/day Alcohol Use Standard Drinks/Week Comments No 0 (1 standard drink = 0.6 oz pur e alcohol) Maybe twice a year. PHQ-2 Answer Date Recorded PHQ-2 Score 0 04/07/2019 Sex and Gender Information Value Date Recorded Sex Assigned at Not on file Gender Identity Not on file Sexual Orientation Not on file Obstetrics History Last Filed Vital Signs Vital Sign Reading Time Taken Comments Blood Pressure 131/83 04/07/2019 10:31 AM SENIOR FINANCIAL ACCOUNTANT to wer Pulse 53 04/07/2019 10:31 AM SENIOR FINANCIAL ACCOUNTANT Temperature 36.9 ??C (98.4 ??F) 04/07/2019 10:[address] Respiratory Rate 16 05/09/2018 12:43 PM SENIOR FINANCIAL ACCOUNTANT Oxygen Saturation 94% 04/07/2019 10:31 AM SENIOR FINANCIAL ACCOUNTANT Inhaled Oxygen Concentration - - Weight 85.7 kg (189 lb) 04/07/2019 10:31 AM SENIOR FINANCIAL ACCOUNTANT Height 168.3 cm (5' 6.25) 04/07/2019 10:[address] Body Mass Index 30.28 04/07/2019 10:31 AM SENIOR FINANCIAL ACCOUNTANT Plan of Treatment Health Maintenance Due Date Last Done Comments Tdap 1980 HIV for age 15-65 1984 Hepatitis C screening for age 18-79 1987 Tetanus booster 08/04/2013 08/05/2003 Colonoscopy through age 75 2014 Lipids for age 45-75 2014 03/22/2001, 03/22/2001, 06/20/2000 Mammogram for age 45-75 2014 08/13/19 11 (Completed outside of [facility]), 08/12/2009 (Completed outside of [facility]) Zoster (shingles) series for age 50+ (1 of 2) 2019 BMI (ht and wt on same day) for age 18+ 04/07/2020 04/07/2019, 06/23/2015 Depression screening for age 12+ 04/07/2020 04/07/2019 COVID-19 vaccine series (2022- season) 2023 Influenza for age 50-64 01/13/2024 03/02/2008, 03/20 Pap test for age 21-65 03/25/2024 , 02/23/2021, 12/20/2018, Additional history exists Pneumococcal series for age 6-64 Aged Out No longer eligible based on patient's age to complete this topic Medical Devices Implanted Type Area Race Engine Builder Device Identifier Shelf Expiration Date Model / Serial / Lot [id number] 4breast 600cc Memorygel Rnd High Smooth Silcn [[id number]] Implanted:Qty: 1 on 04/24/2017 by Shahid Singh MD at [facility] Explanted:at [facility] (Quantity not on file) Left: Breast [employer] 09/21/2020 [id number] # / [id number] 8breast 600cc Memorygel Rnd High Smooth Silcn Implanted:Qty: 1 on 04/24/2017 by Shahid Singh MD at [facility] Explanted:at [facility] (Quantity not on file) Right: Breast [employer] 02/03/2021 [id number] # / [id number] Procedures Procedure Name Priority Date/Time Associated Diagnosis Comments STREET LIGHT SERVICER THIN PREP PAP SCREEN IMAGED Routine 03/25/2021 10:00 AM SENIOR FINANCIAL ACCOUNTANT CHOLESTEROL,TOTAL Routine 03/22/2001 10: 20 AM SENIOR FINANCIAL ACCOUNTANT from Last 3 Months or Most Recently Relevant to Health Maintenance Results * STREET LIGHT SERVICER THIN PREP PAP SCREEN IMAGED (03/25/2021 10:00 AM SENIOR FINANCIAL ACCOUNTANT) Case Report Gynecologic Cytology Report ? Case: [id number] ? Authorizing Provider: ??Nicci Payne MD ?Collected: ? 03/25/2021 1000 ? Ordering Location: ? [facility] ?Received: ?03/29/2021 0914 ? First Screen: ?Kamlesh Naylor ? Specimen: ?STREET LIGHT SERVICER ThinPrep Vial Screening, Cervical/Vaginal ? 04/12/2021 10:38 AM [facility]- ENTRAL LABORATORY INTERPRETATION/ RESULT NEGATIVE FOR INTRAEPITHELIAL LESION OR MALIGNANCY (NIL) (none) 04/12/2021 10:38 AM [facility] ENTRMN LABORATORY IMEN ADEQUACY Satisfactory for evaluation Endocervical component present 04/12/2021 10:38 AM [facility] ENTRAL LABORATORY HPV REQUEST HPV if ASCUS 04/12/2021 10:38 AM [facility] ENTRAL LABORATORY Last Pap Date 02/23/2021 04/12/2021 10:38 AM [facility] ENTRAL LABORATORY Last Pap Result 10:38 AM [facility] Comment:Unsatisfactory also 06/22/2018 unsatifactory Additional Information 04/12/2021 10:38 AM [facility]ORY Comment: Interpreted at [facility], Central Laboratory - [address], [place] [address] Automated Review Successful 04/12/2021 10:38 AM [facility] EN[facility] LABORATORY Comment:Specimen processed s uccessfully by automated shoe lacer device, ThinPrep Imaging System, [employer] Note The pap test is a screening technique, not a diagnostic procedure. It is used primarily to screen for squamous cancers and precursor lesions. Published studies have shown that it is subject to both false negative and false positive results. The pap test should not be used as the sole means to diagnose or exclude pre-malignant and malignant lesions. 04/12/2021 10:38 AM SENIOR FINANCIAL ACCOUNTANT [facility]-C ENTRAL LABORATORY Other (Cervical/Vagina l) 03/25/2021 10:00 AM SENIOR FINANCIAL ACCOUNTANT 03/29/2021 9:14 AM SENIOR FINANCIAL ACCOUNTANT Nicci Payne MD PATHOLOGY/CYTOLOGY [facility]EN[facility]AL LABORATORY [address] [place] [address], [place] * (ABNORMAL) CHOLESTEROL,TOTAL (03/22/2001 10:20 AM SENIOR FINANCIAL ACCOUNTANT) CHOLESTEROL,TOT AL 219(A) 110 - 199 mg/dL 03/22/2001 10:2 0 AM SENIOR FINANCIAL ACCOUNTANT Narrative 10/22/2003 12:20 PM CDT Ordered by an unspecified provider. Other Clinical Staff CHEMISTRY from Last 3 Months or Most Recently Relevant to Health Maintenance Advance Directives * Full Code (Latest Code Status on File) Date Activated Date Inactivated Comments 05/09/2018 12:43 PM 05/10/2018 2:31 AM Question Answer Comments Code Status Discussion: Not Discussed * Full Code Date Activated Date Inactivated Comments 02/26/2018 6:11 AM 02/27/2018 2:35 AM Question Answer Comments Code Status Discussion: Not Discussed Care Teams Bottle Caser Relationship Specialty Start Date End Date Pcp, No . PCP - General 05/29/13
[2023-10-07 17:26] LABS: Lactate* 1.3 mmol/L (0.5-1.9)
[2023-10-07 17:28] LABS: Basophils Absolute Auto 0.02 K/uL (0.00-0.30); Basophils Percent Auto 0.4 % (0.0-3.0); Eosinophils Absolute Auto 0.23 K/uL (0.00-0.50); Eosinophils Percent Auto 4.3 % (0.0-7.0); Hematocrit 39.9 % (33.0-51.0); Immature Granulocytes Abs Auto 0.01 K/uL (0.00-0.30); Immature Granulocytes Pct Auto 0.2 %; Lymphocytes Absolute Auto 2.05 K/uL (0.90-2.90); Lymphocytes Percent Auto 38.2 % (20-44); Mean Corpuscular HGB Conc 35 gm/dL (32-36); Mean Corpuscular Hemoglobin 31 pg (26-34); Mean Corpuscular Volume 88 fL (80-100); Monocytes Percent Auto 6.9 % (0.0-11.0); Neutrophils Absolute Auto 2.68 K/uL (1.7-7.0); Platelet Count* 289 K/uL (140-440); RDW Coefficient of Variation % 11.4 % (11.5-15.5); Red Blood Count 4.52 m/uL (4.00-5.20); White Blood Count* 5.36 K/uL (4.50-11.00)
[2023-10-07 17:29] LABS: Slide Review Reflex No
[2023-10-07 17:44] LABS: Chloride* 106 mmol/L (96-114)
[2023-10-07 17:45] LABS: Albumin* 4.4 g/dL (3.3-5.0); Sodium* 137 mmol/L (135-149)
[2023-10-07 17:46] LABS: Potassium* 3.6 mmol/L (3.6-5.1)
[2023-10-07 17:48] LABS: Creatinine* 0.7 mg/dL (0.5-1.5); Est. Creatinine Clearance* 86.01; Estimated Glomerular Filt Rate 103 ml/min
[2023-10-07 17:49] LABS: Alanine Aminotransferase* 20 U/L (4-35); Alkaline Phosphatase* 66 U/L (40-150); Anion Gap 6 mEq/L (7-15); Aspartate Amino Transferase* 21 U/L (12-35); Bilirubin Direct* 0.4 mg/dL (0.0-0.5); Bilirubin Total* 0.8 mg/dL (0.1-1.5); Blood Urea Nitrogen* 12 mg/dL (7-30); Calcium* 8.9 mg/dL (8.4-10.6); Carbon Dioxide* 25 mmol/L (20-32); Glucose* 117 mg/dL (60-115); Total Protein* 7.3 g/dL (6.0-8.3)
[2023-10-07 17:51] LABS: C Reactive Protein* 0.6 mg/dL (0.5-1.0)
[2023-10-07 18:02] VITALS: BP 145/77; PULSE 49; O2SAT 99
[2023-10-07 18:03] VITALS: PULSE 51; O2SAT 98
[2023-10-07 18:04] LABS: Troponin I* < 0.01 ng/mL (0.01-0.04)
[2023-10-07 18:15] VITALS: PULSE 46; O2SAT 96
== END 2023-10-07 18:47 | disposition home or self-care (01) ==
PROVIDERS: Emergency Provider Family Medicine; PCP Family Medicine
DX: E04.1 Nontoxic single thyroid nodule (principal); R42 Dizziness and giddiness
CPT/HCPCS: 36415; 70450; 70496; 70498; 80048; 80076; 83605; 84443; 84484; 85025; 86140; 93005; 99284; 99285; Q9967

== ENCOUNTER 2023-10-24 15:42 | Outpatient (CLI) | payer OTHER, SELFPAY ==
--- OUTSIDE RECORDS SUMMARY | 2023-10-24 15:44 | XMS_ITS ---
Author Organization [facility] Address [address] [place] [address] Care Team Providers Care Secondary School Teacher Librarian Name Role Phone Unavailable Unavailable Unavailable Surgery Details Not on file Complications Check Surgery Details section. Procedure Estimated Blood Loss Check Surgery Details section. Procedure Findings Check Surgery Details section. Procedure Specimens Taken Check Surgery Details section.
--- OUTSIDE RECORDS SUMMARY | 2023-10-24 15:44 | XMS_ITS | Clinical Summary ---
Author Organization [facility] Address [address] [place] [address] Care Team Providers Care Credit Control Manager Name Role Phone Unavailable Primary Care Provider Unavailabl e Source Comments Patient records contain information from all sites at [facility]. For routine questions regarding patient records, call [phone] during business hours, M-F 8:00 AM - 5:00 PM Central Time. Record requests for emergency care only can be directed to [phone] at any time.[facility] Allergies No known active allergies Medications Medication [...] Cancer Staging:Pathologic:Stage IA(pT1b, pN0, cM0, G2, ER+, NC+, HER2-) - Signed by Jose Angel Zaidi [...] often do you attend chur ch or baptism services? 1 to 4 times per year 01/26/2021 Do you belong to any clubs o r organizations such as gnosticist groups, unions, fraternal or athletic groups, or [...] and heating? Not hard at all 01/26/2021 [facility] - Occupational Stress [...] place to sleep or slept in a [place] facility (including now)? No 01/26/2021 Nutrition Answer Date [...] CDT Gender Identity Female 05/28/2020 9:20 AM BUILDING SERVICES COORDINATOR Sexual Orientation Straight 05/28/2020 9: 20 AM BUILDING SERVICES COORDINATOR Last Filed Vital Signs Vital Sign Reading [...] (2 - Td or Tdap) 09/18/2032 09/18/2022 Cervical Cancer Screening Discontinued 03/25/2021 Mammogram Discontinued 03/31/2021, 09/11, 11/10/2016, Additional history exists Medical Devices Implanted Type Area Packager Or Packer And Weigher Device Identifier Shelf Expiration Date Model / Serial / Lot Breast Implant Breast Implant Bilateral: Breast Equals6 Systems Description:[place] Memory [employer] l breast implants LT ref [id number] 600cc RT ref [id number] [id number] Procedures Procedure Name Priority Date/Time Associated Diagnosis Comments MR BREAST BILATERAL WITHOUT AND WITH IV CONTRAST RAD - Routine (most inpatients and all outpatients) 03/31/2021 3:55 PM BUILDING SERVICES COORDINATOR 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 (HCC) Abnormal Magnetic Resonance Imaging Breast COMPREHENSIVE METABOLIC PANEL, S/P Routine 11/12/2019 2:52 PM CDT 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 (HCC) Osteopenia from Last 3 Months or Most Recently Relevant to Health Maintenance Results * MR Breast Bilateral without and with IV Contrast (03/31/2021 3:55 PM BUILDING SERVICES COORDINATOR) Anatomical Region Laterality Modality Breast, Breast Imaging RST L OS, Breast Imaging ARZ LOS, Breast Imaging FLA LOS Bilateral Magnetic Resonance 04/01/2021 9:58 AM BUILDING SERVICES COORDINATOR Impressions 04/01/2021 1:47 PM BUILDING SERVICES COORDINATOR 1. Postoperative changes bilateral mastectomy with bilateral subpectoral silicone implant reconstruction. 2. Enhancing foci in both breasts with adjacent oil cysts, compatible with fat necrosis. RECOMMENDATION: ??Individualized Recommendation Consider continued imaging follow-up if physical exam findings change. ASSESSMENT: ??BI-RADS: 2: Benign. Narrative 04/01/2021 1:47 PM BUILDING SERVICES COORDINATOR EXAM: ??MR BREAST BILATERAL WITHOUT AND WITH [...] Jose Angel Zaidi M.D. LAB BLOOD ADD-ON [facility] [address] [place] [address], [place] OW[facility] [place] [address] [place] [address] from Last 3 Months or Most Recently Relevant to Health Maintenance
--- OUTSIDE RECORDS SUMMARY | 2023-10-24 15:44 | XMS_ITS | Referral Summary ---
Author Organization [facility] Address [address] [place] [address] Care Team Providers Care Screwdown Operator Name Role Phone Unavailable Primary Care Provider Unavailabl e Source Comments Patient records contain information from all sites at [facility]. For routine questions regarding patient records, call [phone] during business hours, M-F 8:00 AM - 5:00 PM Central Time. Record requests for emergency care only can be directed to [phone] at any time.[facility] Allergies No known active allergies Medications Medication [...] Cancer Staging:Pathologic:Stage IA(pT1b, pN0, cM0, G2, ER+, IA+, HER2-) - Signed by Jose Angel Zaidi [...] often do you attend chur ch or confucianist services? 1 to 4 times per year 01/26/2021 Do you belong to any clubs o r organizations such as moravian groups, unions, fraternal or athletic groups, or [...] and heating? Not hard at all 01/26/2021 [facility] of Occupat ional Health - Occupational Stress [...] place to sleep or slept in a [facility] (including now)? No 01/26/2021 Nutrition Answer Date [...] CDT Gender Identity Female 05/28/2020 9:20 AM MANAGER FIRE Sexual Orientation Straight 05/28/2020 9: 20 AM MANAGER FIRE Last Filed Vital Signs Vital Sign Reading [...] on file Medical Devices Implanted Type Area Sql Engineer Device Identifier Shelf Expiration Date Model / Serial / Lot Breast Implant Breast Implant Bilateral: Breast [employer] Description:[employer] Memory [employer] l breast implants LT ref [id number] RT ref [id number] 600cc Procedures Procedure Name Priority Date/Time Associated Diagnosis Comments MR BREAST BILATERAL WITHOUT AND WITH IV CONTRAST RAD - Routine (most inpatients and all outpatients) 03/31/2021 3:55 PM MANAGER FIRE 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 Postoperative changes bilateral mastectomy with bilateral subpectoral silicone implant reconstruction. 2. Enhancing foci in both breasts with adjacent oil cysts, compatible with fat necrosis. RECOMMENDATION: ??Individualized Recommendation Consider continued imaging follow-up if physical exam findings change. ASSESSMENT: ??BI-RADS: 2: Benign. Narrative 04/01/2021 1:47 PM MANAGER FIRE EXAM: ??MR BREAST BILATERAL WITHOUT AND WITH [...] MRI evidence for intracapsular or extracapsularrupture. No atlon-implant fluid collection. The previously seen focus of [...] Jose Angel Zaidi M.D. LAB BLOOD ADD-ON [facility] [address] [place] [address], [place] OW[place] [facility] [place] [address] [place] [address] from Last 3 Months or Most Recently Relevant to Health Maintenance
--- OUTSIDE RECORDS SUMMARY | 2023-10-24 15:44 | XMS_ITS | Clinical Summary ---
Author Organization [employer] [facility] Address [place], [place] [address] Care Team Providers Care Boiler Installer Name Role Phone Pcp, No Primary Care [...] Department Care Team Description 10/05/2023 Nurse Triage [facility] Centralized Nurse Triage Pcp, No Dizziness from Last 3 Months Immunizations Name Administration Dates Next Due Influenza, IIV3 (Age >=3 years) 03/02/2008,03/20 Td (Age >=7 Years) 08/05/2003 Family History Medical History Relation Name Comments Cancer-colon Maternal Grandmother Cancer-breast Other paternal cousi n, maternal great aunt Genetic Other mother: A\T\W~f ather: skin CA, not melanoma~grprs: 70s GF dec of [place], GM with COPD, GF young of a [...] Comments Blood Pressure 131/83 04/07/2019 10:31 AM MICA PLATE LAYER to wer Pulse 53 04/07/2019 10:31 AM MICA PLATE LAYER Temperature 36.9 ??C (98.4 ??F) 04/07/2019 10:[address] Respiratory Rate 16 05/09/2018 12:43 PM MICA PLATE LAYER Oxygen Saturation 94% 04/07/2019 10:31 AM MICA PLATE LAYER Inhaled Oxygen Concentration - - Weight 85.7 kg (189 lb) 04/07/2019 10:31 AM MICA PLATE LAYER Height 168.3 cm (5' 6.25) 04/07/2019 10:[address] Body Mass Index 30.28 04/07/2019 10:31 AM MICA PLATE LAYER Plan of Treatment Health Maintenance Due Date Last Done Comments Tdap 1980 HIV for age 15-65 1984 Hepatitis C screening for age 18-79 1987 Tetanus booster 08/04/2013 08/05/2003 Colonoscopy through age 75 2014 Lipids for age 45-75 2014 03/22/2001, 03/22/2001, 06/20/2000 Mammogram for age 45-75 2014 08/13/19 11 (Completed outside of [facility]), 08/12/2009 (Completed outside of [facility]) Zoster (shingles) series for age 50+ (1 [...] this topic Medical Devices Implanted Type Area Manager Philosophy Device Identifier Shelf Expiration Date Model / Serial / Lot [id number] 4breast 600cc Memorygel Rnd High Smooth Silcn [[id number]] Implanted:Qty: 1 on 04/24/2017 by Shahid Singh MD at [facility] Explanted:at [facility] (Quantity not on file) Left: Breast [employer] 09/21/2020 [id number] # / [id number] 8breast 600cc Memorygel Rnd High Smooth Silcn Implanted:Qty: 1 on 04/24/2017 by Shahid Singh MD at [facility] Explanted:at [facility] (Quantity not on file) Right: Breast [employer] 02/03/2021 [id number] # / [id number] Procedures Procedure Name Priority Date/Time Associated Diagnosis Comments PROGRAMMER BUSINESS THIN PREP PAP SCREEN IMAGED Routine 03/25/2021 10:00 AM MICA PLATE LAYER CHOLESTEROL,TOTAL Routine 03/22/2001 10: 20 AM MICA PLATE LAYER from Last 3 Months or Most Recently Relevant to Health Maintenance Results * PROGRAMMER BUSINESS THIN PREP PAP SCREEN IMAGED (03/25/2021 10:00 AM MICA PLATE LAYER) Case Report Gynecologic Cytology Report ? Case: [id number] ? Authorizing Provider: ??Nicci Payne MD ?Collected: ? 03/25/2021 1000 ? Ordering Location: ? [facility] ?Received: ?03/29/2021 0914 ? First Screen: ?Kamlesh Naylor ? Specimen: ?PROGRAMMER BUSINESS ThinPrep Vial Screening, Cervical/Vaginal ? 04/12/2021 10:[address] [facility]- ENTRAL LABORATORY INTERPRETATION/ RESULT NEGATIVE FOR INTRAEPITHELIAL LESION OR MALIGNANCY (NIL) (none) 04/12/2021 10:38 AM [facility] ENTRMO LABORATORY IMEN ADEQUACY Satisfactory for evaluation Endocervical component present 04/12/2021 10:38 AM [facility] ENTRAL LABORATORY HPV REQUEST HPV if ASCUS 04/12/2021 10:38 AM [facility] ENTRAL LABORATORY Last Pap Date 02/23/2021 04/12/2021 10:38 AM [facility] ENTRAL LABORATORY Last Pap Result 10:38 AM [facility] Comment:Unsatisfactory also 06/22/2018 unsatifactory Additional Information 04/12/2021 10:38 AM [facility] Comment: Interpreted at [facility], Central Laboratory - [address], [place] [address] Automated Review Successful 04/12/2021 10:38 AM [facility] EN[facility]MO LABOR[facility] Comment:Specimen processed s uccessfully by automated inside sales trainer device, ThinPrep Imaging System, [employer] Note The pap test is a screening technique, not a diagnostic procedure. It is used primarily to screen for squamous cancers and precursor lesions. Published studies have shown that it is subject to both false negative and false positive results. The pap test should not be used as the sole means to diagnose or exclude pre-malignant and malignant lesions. 04/12/2021 10:38 AM MICA PLATE LAYER [facility]-C ENTRAL LABORATORY Other (Cervical/Vagina l) 03/25/2021 10:00 AM MICA PLATE LAYER 03/29/2021 9:14 AM MICA PLATE LAYER Nicci Payne MD PATHOLOGY/CYTOLOGY [facility] LABORATORY [address] [place] [address], [place] * (ABNORMAL) CHOLESTEROL,TOTAL (03/22/2001 10:20 AM MICA PLATE LAYER) CHOLESTEROL,TOT AL 219(A) 110 - 199 mg/dL 03/22/2001 10:2 0 AM MICA PLATE LAYER Narrative 10/22/2003 12:20 PM CDT Ordered by [...] Code Status Discussion: Not Discussed Care Teams Boiler Installer Relationship Specialty Start Date End Date Pcp, No . PCP - General 05/29/13
--- NOTE | 2023-10-24 16:00 | CRLHL7_ITS ---
For Patients: As a result of the Century Cures Act, medical imaging exams and procedure reports are released immediately into your electronic medical record. You may view this report before your referring provider. If you have questions, please contact your health care provider. INDICATION: Nontoxic single thyroid nodule seen on CT TECHNIQUE: Conventional two-dimensional park-scale ultrasound of the thyroid gland. COMPARISON: None. FINDINGS: In the inferior right thyroid lobe is a 2.8 x 1.6 x 1.5 cm TR4 nodule. An additional 0.4 cm TR4 nodule is demonstrated in the inferior left lobe. The thyroid parenchyma is otherwise unremarkable. The right lobe measures 4.9 x 2.4 x 2.3 cm and the left lobe 4.2 x 1.3 x 1.1 cm. The isthmus measures 4 mm in thickness. IMPRESSION: 2.8 x 1.6 x 1.5 cm inferior right thyroid lobe TR4 nodule. FNA recommended. ACR TI-RADS: TR1: Benign No FNA TR2: Not Suspicious No FNA TR3: Mildly Suspicious FNA if greater than or equal to 2.5 cm Follow if greater than or equal to 1.5 cm and less than 2.5 cm TR4: Moderately Suspicious FNA if greater than or equal to 1.5 cm Follow if greater than or equal to 1 cm and less than 1.5 cm TR5: Highly Suspicious FNA if greater than or equal to 1 cm Follow if greater than or equal to 0.5 cm and less than 1.0 cm Dictated by Gio Morales MD @ 10/26/2023 8:13:06 AM (Electronically Signed)
== END 2023-10-24 15:43 | disposition home or self-care (01) ==
LOC: US 15:42
PROVIDERS: PCP Internal Medicine; Visit Provider Internal Medicine
DX: E04.1 Nontoxic single thyroid nodule (principal)
CPT/HCPCS: 76536

== ENCOUNTER 2023-11-14 11:03 | Outpatient (CLI) | payer OTHER, SELFPAY ==
--- OUTSIDE RECORDS SUMMARY | 2023-11-14 11:06 | XMS_ITS | Clinical Summary ---
Author Organization [facility] Address [place], [place] [address] Care Team Providers Care Grade Recorder Name Role Phone Pcp, No Primary Care [...] Department Care Team Description 10/05/2023 Nurse Triage [facility] Centralized Nurse Triage Pcp, No Dizziness from Last 3 Months Immunizations Name Administration Dates Next Due Influenza, IIV3 (Age >=3 years) 03/02/2008,03/20 Td (Age >=7 Years) 08/05/2003 Family History Medical History Relation Name Comments Cancer-colon Maternal Grandmother Cancer-breast Other paternal cousi n, maternal great aunt Genetic Other mother: A\T\W~f ather: skin CA, not melanoma~grprs: 70s GF dec of [place], GM with COPD, GF young of a [...] Comments Blood Pressure 131/83 04/07/2019 10:31 AM PROGRESSIVE ASSEMBLER AND FITTER to wer Pulse 53 04/07/2019 10:31 AM PROGRESSIVE ASSEMBLER AND FITTER Temperature 36.9 ??C (98.4 ??F) 04/07/2019 10:[address] Respiratory Rate 16 05/09/2018 12:43 PM PROGRESSIVE ASSEMBLER AND FITTER Oxygen Saturation 94% 04/07/2019 10:31 AM PROGRESSIVE ASSEMBLER AND FITTER Inhaled Oxygen Concentration - - Weight 85.7 kg (189 lb) 04/07/2019 10:31 AM PROGRESSIVE ASSEMBLER AND FITTER Height 168.3 cm (5' 6.25) 04/07/2019 10:[address] Body Mass Index 30.28 04/07/2019 10:31 AM PROGRESSIVE ASSEMBLER AND FITTER Plan of Treatment Health Maintenance Due Date Last Done Comments Tdap 1980 HIV for age 15-65 1984 Hepatitis C screening for age 18-79 1987 Tetanus booster 08/04/2013 08/05/2003 Colonoscopy through age 75 2014 Lipids for age 45-75 2014 03/22/2001, 03/22/2001, 06/20/2000 Mammogram for age 45-75 2014 08/13/19 11 (Completed outside of [facility]), 08/12/2009 (Completed outside of [facility]) Zoster (shingles) series for age 50+ (1 [...] this topic Medical Devices Implanted Type Area Decorator Lighting Fixtures Device Identifier Shelf Expiration Date Model / Serial / Lot [id number] 4breast 600cc Memorygel Rnd High Smooth Silcn [[id number]] Implanted:Qty: 1 on 04/24/2017 by Shahid Singh MD at [facility] Explanted:at [facility] (Quantity not on file) Left: Breast [employer] [place] [employer] 09/21/2020 [id number] # / [id number] 8breast 600cc Memorygel Rnd High Smooth Silcn Implanted:Qty: 1 on 04/24/2017 by Shahid Singh MD at [facility] Explanted:at [facility] (Quantity not on file) Right: Breast [employer] [place] [employer] 02/03/2021 [id number] # / [id number] Procedures Procedure Name Priority Date/Time Associated Diagnosis Comments SWINE EXTENSION FIELD SPECIALIST THIN PREP PAP SCREEN IMAGED Routine 03/25/2021 10:00 AM PROGRESSIVE ASSEMBLER AND FITTER CHOLESTEROL,TOTAL Routine 03/22/2001 10: 20 AM PROGRESSIVE ASSEMBLER AND FITTER from Last 3 Months or Most Recently Relevant to Health Maintenance Results * SWINE EXTENSION FIELD SPECIALIST THIN PREP PAP SCREEN IMAGED (03/25/2021 10:00 AM PROGRESSIVE ASSEMBLER AND FITTER) Case Report Gynecologic Cytology Report ? Case: [id number] ? Authorizing Provider: ??Nicci Payne MD ?Collected: ? 03/25/2021 1000 ? Ordering Location: ? [facility] ?Received: ?03/29/2021 0914 ? First Screen: ?Kamlesh Naylor ? Specimen: ?SWINE EXTENSION FIELD SPECIALIST ThinPrep Vial Screening, Cervical/Vaginal ? 04/12/2021 10:[address] [facility]- ENTRAL LABORATORY INTERPRETATION/ RESULT NEGATIVE FOR INTRAEPITHELIAL LESION OR MALIGNANCY (NIL) (none) 04/12/2021 10:38 AM [facility] ENTRKY LABORATORY IMEN ADEQUACY Satisfactory for evaluation Endocervical component present 04/12/2021 10:38 AM [facility] ENTRAL LABORATORY HPV REQUEST HPV if ASCUS 04/12/2021 10:38 AM [facility] EN[facility] LAB[facility]ORY Last Pap Date 02/23/2021 04/12/2021 10:38 AM [facility] EN[facility] LAB[facility]ORY Last Pap Result 10:38 AM [facility] Comment:Unsatisfactory also 06/22/2018 unsatifactory Additional Information 04/12/2021 10:38 AM [facility] Comment: Interpreted at [facility], Central Laboratory - [address], [place] [address] Automated Review Successful 04/12/2021 10:38 AM [facility] Comment:Specimen processed s uccessfully by automated geomorphology teacher device, ThinPrep Imaging System, [employer] Note The pap test is a screening technique, not a diagnostic procedure. It is used primarily to screen for squamous cancers and precursor lesions. Published studies have shown that it is subject to both false negative and false positive results. The pap test should not be used as the sole means to diagnose or exclude pre-malignant and malignant lesions. 04/12/2021 10:38 AM PROGRESSIVE ASSEMBLER AND FITTER [facility]-C ENTRAL LABORATORY Other (Cervical/Vagina l) 03/25/2021 10:00 AM PROGRESSIVE ASSEMBLER AND FITTER 03/29/2021 9:14 AM PROGRESSIVE ASSEMBLER AND FITTER Nicci Payne MD PATHOLOGY/CYTOLOGY [facility]-CENTRAL LABORATORY [address] [place] [address], [place] * (ABNORMAL) CHOLESTEROL,TOTAL (03/22/2001 10:20 AM PROGRESSIVE ASSEMBLER AND FITTER) CHOLESTEROL,TOT AL 219(A) 110 - 199 mg/dL 03/22/2001 10:2 0 AM PROGRESSIVE ASSEMBLER AND FITTER Narrative 10/22/2003 12:20 PM CDT Ordered by [...] Code Status Discussion: Not Discussed Care Teams Grade Recorder Relationship Specialty Start Date End Date Pcp, No . PCP - General 05/29/13
--- OUTSIDE RECORDS SUMMARY | 2023-11-14 11:06 | XMS_ITS | Clinical Summary ---
Author Organization [facility] Address [address] [place] [address] Care Team Providers Care Risk Assessor Name Role Phone Unavailable Primary Care Provider Unavailabl e Source Comments Patient records contain information from all sites at [facility]. For routine questions regarding patient records, call [phone] during business hours, M-F 8:00 AM - 5:00 PM Central Time. Record requests for emergency care only can be directed to [phone] at any time.[facility] Allergies No known active allergies Medications [...] Cancer Staging:Pathologic:Stage IA(pT1b, pN0, cM0, G2, ER+, AL+, HER2-) - Signed by Jose Angel Zaidi [...] often do you attend chur ch or uatsdin services? 1 to 4 times per year 01/26/2021 Do you belong to any clubs o r organizations such as hoahaoism groups, unions, fraternal or athletic groups, or [...] and heating? Not hard at all 01/26/2021 [facility] - [...] place to sleep or slept in a skilled nursing (including now)? No 01/26/2021 Nutrition Answer Date [...] CDT Gender Identity Female 05/28/2020 9:20 AM CIRCULAR SAW EDGE FUSER Sexual Orientation Straight 05/28/2020 9: 20 AM CIRCULAR SAW EDGE FUSER Last Filed Vital Signs Vital Sign Reading [...] 2022-2 4 season) 2023 03/03/2021, 08/24/2020, 08/03/2020 Depression Screening (Annual PHQ-2) 05/14/2023 Influenza Vaccine (#1) 2024 4, 03/02/2008, 03/20/2007 DTaP,Tdap,and Td Vaccines (2 - Td or Tdap) 09/18/2032 09/18/2022 Cervical Cancer Screening Discontinued 03/25/2021 Mammogram Discontinued 03/31/2021, 09/11, 11/10/2016, Additional history exists Medical Devices Implanted Type Area Firer Marine Device Identifier Shelf Expiration Date Model / Serial / Lot Breast Implant Breast Implant Bilateral: Breast [facility] Description:[employer] Memory [employer] l breast implants LT ref [id number] 600cc RT ref [id number] 600cc Procedures Procedure Name Priority Date/Time Associated Diagnosis Comments MR BREAST BILATERAL WITHOUT AND WITH IV CONTRAST RAD - Routine (most inpatients and all outpatients) 03/31/2021 3:55 PM CIRCULAR SAW EDGE FUSER 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 (HCC) Abnormal Magnetic Resonance Imaging Breast COMPREHENSIVE METABOLIC PANEL, S/P Routine 11/12/2019 2:52 PM CDT 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 (HCC) Osteopenia from Last 3 Months or Most Recently Relevant to Health Maintenance Results * MR Breast Bilateral without and with IV Contrast (03/31/2021 3:55 PM CIRCULAR SAW EDGE FUSER) Anatomical Region Laterality Modality Breast, Breast Imaging RST L OS, Breast Imaging ARZ LOS, Breast Imaging FLA LOS Bilateral Magnetic Resonance 04/01/2021 9:58 AM CIRCULAR SAW EDGE FUSER Impressions 04/01/2021 1:47 PM CIRCULAR SAW EDGE FUSER 1. Postoperative changes bilateral mastectomy with bilateral subpectoral silicone implant reconstruction. 2. Enhancing foci in both breasts with adjacent oil cysts, compatible with fat necrosis. RECOMMENDATION: ??Individualized Recommendation Consider continued imaging follow-up if physical exam findings change. ASSESSMENT: ??BI-RADS: 2: Benign. Narrative 04/01/2021 1:47 PM CIRCULAR SAW EDGE FUSER EXAM: ??MR BREAST BILATERAL WITHOUT AND WITH [...] CDT 11/12/2019 2:55 PM CDT Jose Angel aZidi M.D. LAB BLOOD ADD-ON [facility] [address] [place] [address], [place] OW[place] [facility] [place] [address] [place] [address] from Last 3 Months or Most Recently Relevant to Health Maintenance
--- OUTSIDE RECORDS SUMMARY | 2023-11-14 11:06 | XMS_ITS | Referral Summary ---
Author Organization [facility] Address [address] [place] [address] Care Team Providers Care Manager Pet Name Role Phone Unavailable Primary Care Provider Unavailabl e Source Comments Patient records contain information from all sites at [facility]. For routine questions regarding patient records, call [phone] during business hours, M-F 8:00 AM - 5:00 PM Central Time. Record requests for emergency care only can be directed to [phone] at any time.[facility] Allergies No known active allergies Medications Medication [...] Cancer Staging:Pathologic:Stage IA(pT1b, pN0, cM0, G2, ER+, ND+, HER2-) - Signed by Jose Angel Zaidi [...] often do you attend chur ch or mandaen services? 1 to 4 times per year 01/26/2021 Do you belong to any clubs o r organizations such as zoroastrian groups, unions, fraternal or athletic groups, or [...] and heating? Not hard at all 01/26/2021 [facility] - Occupational Stress [...] place to sleep or slept in a care home (including now)? No 01/26/2021 Nutrition Answer Date [...] CDT Gender Identity Female 05/28/2020 9:20 AM COMMERCIAL GREEN BUILDING DESIGNER Sexual Orientation Straight 05/28/2020 9: 20 AM COMMERCIAL GREEN BUILDING DESIGNER Last Filed Vital Signs Vital Sign Reading [...] on file Medical Devices Implanted Type Area In Store Marketing Representative Device Identifier Shelf Expiration Date Model / Serial / Lot Breast Implant Breast Implant Bilateral: Breast [employer] Description:[place] Memory [employer] l breast implants LT ref [id number] RT ref [id number] 600cc Procedures Procedure Name Priority Date/Time Associated Diagnosis Comments MR BREAST BILATERAL WITHOUT AND WITH IV CONTRAST RAD - Routine (most inpatients and all outpatients) 03/31/2021 3:55 PM COMMERCIAL GREEN BUILDING DESIGNER 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 (HCC) Abnormal Magnetic Resonance Imaging Breast COMPREHENSIVE METABOLIC PANEL, S/P Routine 11/12/2019 2:52 PM CDT 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 (HCC) Osteopenia from Last 3 Months or Most Recently Relevant to Health Maintenance Results * MR Breast Bilateral without and with IV Contrast (03/31/2021 3:55 PM COMMERCIAL GREEN BUILDING DESIGNER) Anatomical Region Laterality Modality Breast, Breast Imaging RST L OS, Breast Imaging ARZ LOS, Breast Imaging FLA LOS Bilateral Magnetic Resonance 04/01/2021 9:58 AM COMMERCIAL GREEN BUILDING DESIGNER Impressions 04/01/2021 1:47 PM COMMERCIAL GREEN BUILDING DESIGNER 1. Postoperative changes bilateral mastectomy with bilateral subpectoral silicone implant reconstruction. 2. Enhancing foci in both breasts with adjacent oil cysts, compatible with fat necrosis. RECOMMENDATION: ??Individualized Recommendation Consider continued imaging follow-up if physical exam findings change. ASSESSMENT: ??BI-RADS: 2: Benign. Narrative 04/01/2021 1:47 PM COMMERCIAL GREEN BUILDING DESIGNER EXAM: ??MR BREAST BILATERAL WITHOUT AND WITH [...] Jose Angel Zaidi M.D. LAB BLOOD ADD-ON [facility] [address] [place] [address], [place] [facility] [facility] [place] [address] [place] [address] from Last 3 Months or Most Recently Relevant to Health Maintenance
--- OUTSIDE RECORDS SUMMARY | 2023-11-14 11:06 | XMS_ITS ---
Author Organization [facility] Address [address] [place] [address] Care Team Providers Care Safety Scientist Name Role Phone Unavailable Unavailable Unavailable Surgery Details Not on file Complications Check Surgery Details section. Procedure Estimated Blood Loss Check Surgery Details section. Procedure Findings Check Surgery Details section. Procedure Specimens Taken Check Surgery Details section.
--- NOTE | 2023-11-14 11:15 | CRLHL7_ITS ---
For Patients: As a result of the Century Cures Act, medical imaging exams and procedure reports are released immediately into your electronic medical record. You may view this report before your referring provider. If you have questions, please contact your health care provider. INDICATION : Right thyroid nodule. TECHNIQUE : Ultrasound-guided fine needle aspiration of thyroid nodule. Comparison : 10/24/2023 FINDINGS : PROCEDURE: After the informed consent and time-out, multiple fine needle aspirations were obtained from the thyroid nodule. Fine needle performed. 25 gauge needles were used. Lidocaine was used for local anesthesia. The preliminary cytology was adequate for interpretation. Real-time imaging was used for guidance and needle placement. Post imaging ultrasound demonstrates no immediate complication. IMPRESSION : Successful fine needle aspiration of right thyroid nodule. Dictated by Klaus Kelly MD @ 11/16/2023 9:23:00 AM (Electronically Signed)
== END 2023-11-14 11:04 | disposition home or self-care (01) ==
LOC: US 11:03
PROVIDERS: PCP Internal Medicine; Visit Provider Internal Medicine
DX: E04.1 Nontoxic single thyroid nodule (principal)
CPT/HCPCS: 10005; 88173

== ENCOUNTER 2023-12-06 08:45 | Outpatient (RCR) | payer OTHER, SELFPAY | END 2024-04-04 23:59 | disposition home or self-care (01) | PROVIDERS: PCP Family Medicine; Visit Provider Internal Medicine | DX: R42 Dizziness and giddiness (principal); Z51.89 Encounter for other specified aftercare | CPT/HCPCS: 95992; 97110; 97140; 97161 ==

== ENCOUNTER 2024-02-15 13:26 | Outpatient (CLI) | payer OTHER, SELFPAY ==
--- OUTSIDE RECORDS SUMMARY | 2024-02-15 13:28 | XMS_ITS | Clinical Summary ---
Author Organization [facility] Address [place], [place] [address] Care Team Providers Care Spout Positioner Name Role Phone Pcp, No Primary Care [...] DISEASE 06/20/2000 CONTRACEPTIVE PRESCRIPTION, ORAL AGENT 1 Immunizations Name Administration Dates Next Due Influenza, IIV3 (Age >=3 years) 03/02/2008,03/20 Td (Age >=7 Years) 08/05/2003 Family History Medical History Relation Name Comments Cancer-colon Maternal Grandmother Cancer-breast Other paternal cousi n, maternal great aunt Genetic Other mother: A\T\W~f ather: skin CA, not melanoma~grprs: 70s GF dec of [place], GM with COPD, GF young of a [...] Comments Blood Pressure 131/83 04/07/2019 10:31 AM CLOTH COVERER to wer Pulse 53 04/07/2019 10:31 AM CLOTH COVERER Temperature 36.9 ??C (98.4 ??F) 04/07/2019 10:[address] Respiratory Rate 16 05/09/2018 12:43 PM CLOTH COVERER Oxygen Saturation 94% 04/07/2019 10:31 AM CLOTH COVERER Inhaled Oxygen Concentration - - Weight 85.7 kg (189 lb) 04/07/2019 10:31 AM CLOTH COVERER Height 168.3 cm (5' 6.25) 04/07/2019 10:[address] Body Mass Index 30.28 04/07/2019 10:31 AM CLOTH COVERER Plan of Treatment Health Maintenance Due Date Last Done Comments Tdap 1980 HIV for age 15-65 1984 Hepatitis C screening for age 18-79 1987 Tetanus booster 08/04/2013 08/05/2003 Colonoscopy through age 75 2014 Lipids for age 45-75 2014 03/22/2001, 03/22/2001, 06/20/2000 Mammogram for age 45-75 2014 08/13/19 11 (Completed outside of [email or web address]), 08/12/2009 (Completed outside of [email or web address]) Zoster (shingles) series for age 50+ (1 of 2) 2019 BMI (ht and wt on same day) for age 18+ 04/07/2020 04/07/2019, 06/23/2015 Depression screening for age 12+ 04/07/2020 04/07/2019 COVID-19 vaccine series (2023- season) 2024 Influenza for age 50-64 01/13/2024 03/02/2008, 03/20 Pap test for age 21-65 03/25/2024 , 02/23/2021, 12/20/2018, Additional history exists Pneumococcal series for age 6-64 Aged Out No longer eligible based on patient's age to complete this topic Medical Devices Implanted Type Area Patient Care Assistant Device Identifier Shelf Expiration Date Model / Serial / Lot [id number] 4breast 600cc Memorygel Rnd High Smooth Silcn [[id number]] Implanted:Qty: 1 on 04/24/2017 by Shahid Singh MD at [facility] Explanted:at [facility] (Quantity not on file) Left: Breast [employer] [place] [employer] 09/21/2020 [id number] # / [id number] 8breast 600cc Memorygel Rnd High Smooth Silcn Implanted:Qty: 1 on 04/24/2017 by Shahid Singh MD at [facility] Explanted:at [facility] (Quantity not on file) Right: Breast [employer] [place] [employer] 02/03/2021 [id number] # / [id number] Procedures Procedure Name Priority Date/Time Associated Diagnosis Comments PARTS COUNTERPERSON THIN PREP PAP SCREEN IMAGED Routine 03/25/2021 10:00 AM CLOTH COVERER CHOLESTEROL,TOTAL Routine 03/22/2001 10: 20 AM CLOTH COVERER from Last 3 Months or Most Recently Relevant to Health Maintenance Results * PARTS COUNTERPERSON THIN PREP PAP SCREEN IMAGED (03/25/2021 10:00 AM CLOTH COVERER) Case Report Gynecologic Cytology Report ? Case: [id number] ? Authorizing Provider: ??Nicci Payne MD ?Collected: ? 03/25/2021 1000 ? Ordering Location: ? [facility] ?Received: ?03/29/2021 0914 ? First Screen: ?Kamlesh Naylor ? Specimen: ?PARTS COUNTERPERSON ThinPrep Vial Screening, Cervical/Vaginal ? 04/12/2021 10:38 AM [facility] LABORAT[facility]-C ENTRAL LABORATORY INTERPRETATION/ RESULT NEGATIVE FOR INTRAEPITHELIAL LESION OR MALIGNANCY (NIL) (none) 04/12/2021 10:38 AM [facility]- ENTRAL LABORATORY IMEN ADEQUACY Satisfactory for evaluation Endocervical component present 04/12/2021 10:38 AM [facility] HPV REQUEST HPV if ASCUS 04/12/2021 10:38 AM [facility] ENTR[facility] LABORATORY Last Pap Date 02/23/2021 04/12/2021 10:38 AM [facility]-C ENTRAL LABORATORY Last Pap Result 10:38 AM [facility] ENTRAL LABORATORY Comment:Unsatisfactory also 06/22/2018 unsatifactory Additional Information 04/12/2021 10:38 AM [facility] ENTRAL LABORATORY Comment: Interpreted at [facility], Central Laboratory - [address], [place] [address] Automated Review Successful 04/12/2021 10:38 AM [facility] ENTRAL LABORATORY Comment:Specimen processed s uccessfully by automated unit secy device, ThinPrep Imaging System, [employer] Note The pap test is a screening technique, not a diagnostic procedure. It is used primarily to screen for squamous cancers and precursor lesions. Published studies have shown that it is subject to both false negative and false positive results. The pap test should not be used as the sole means to diagnose or exclude pre-malignant and malignant lesions. 04/12/2021 10:38 AM [facility] ENTRAL LABORATORY Other (Cervical/Vagina l) 03/25/2021 10:00 AM CLOTH COVERER 03/29/2021 9:14 AM CLOTH COVERER Nicci Payne MD PATHOLOGY/CYTOLOGY [facility]-CENTRAL LABORATORY [address] [place] [address], [place] * (ABNORMAL) CHOLESTEROL,TOTAL (03/22/2001 10:20 AM CLOTH COVERER) CHOLESTEROL,TOT AL 219(A) 110 - 199 mg/dL 03/22/2001 10:2 0 AM CLOTH COVERER Narrative 10/22/2003 12:20 PM CDT Ordered by [...] Code Status Discussion: Not Discussed Care Teams Spout Positioner Relationship Specialty Start Date End Date Pcp, No . PCP - General 05/29/13
--- NOTE | 2024-02-15 13:45 | CRLHL7_ITS ---
For Patients: As a result of the Century Cures Act, medical imaging exams and procedure reports are released immediately into your electronic medical record. You may view this report before your referring provider. If you have questions, please contact your health care provider. CLINICAL HISTORY: Asymmetric hearing loss. TECHNIQUE: 3D TOF MRA of the head was performed. 3D MIP reformats were performed at an independent workstation. COMPARISON: None available. FINDINGS: The petrous, cavernous, and supraclinoid segments of the internal carotid arteries are within normal limits. The anterior and middle cerebral arteries are within normal limits. The anterior communicating artery is visualized and within normal limits. The intracranial vertebral arteries, basilar trunk, and posterior cerebral arteries are within normal limits. No intracranial proximal large vessel occlusion or flow-limiting luminal stenosis. No evidence of cerebral aneurysm or findings to suggest an arterial-venous shunting lesion. IMPRESSION: Normal MRA of the head. Dictated by Terry Narvaez MD @ 02/15/2024 11:10:57 PM (Electronically Signed)
--- NOTE | 2024-02-15 14:30 | CRLHL7_ITS ---
For Patients: As a result of the Century Cures Act, medical imaging exams and procedure reports are released immediately into your electronic medical record. You may view this report before your referring provider. If you have questions, please contact your health care provider. CLINICAL HISTORY: Asymmetric hearing loss. TECHNIQUE: Multi-sequence, multiplanar MRI examination of the brain was performed. In addition, multi-sequence, multiplanar examination, including high-resolution imaging, through the IAC`s was performed. Contrast: 20mL of Dotarem was administered intravenously. COMPARISON: None available. FINDINGS: There is no restricted diffusion in the brain to indicate the presence of acute ischemia. No extra-axial collection, mass effect, or midline shift. Mild patchy T2/FLAIR hyperintensity in the white matter of both hemispheres likely reflect sequela mild chronic small vessel ischemia. Brain parenchymal volume and morphology are within normal limits. The ventricles are normal in size and morphology. There is no pathologic intracranial enhancement. The posterior fossa is unremarkable. No evidence of pathologic mass within the cerebellopontine angle cisterns. The internal auditory canals are within normal limits and without evidence of pathologic enhancement. The inner ear structures are within normal limits. The orbits are unremarkable. The paranasal sinuses are unremarkable. Trace fluid in the left mastoid air cells. The calvarium is unremarkable. IMPRESSION: 1. No acute intracranial abnormality. 2. No evidence of pathology involving the cerebellopontine angle cisterns, internal auditory canals, or inner ear structures. 3. Findings likely reflecting sequela mild chronic small vessel ischemia. 4. Trace left mastoid effusion Dictated by Terry Narvaez MD @ 02/15/2024 11:05:22 PM (Electronically Signed)
== END 2024-02-15 13:27 | disposition home or self-care (01) ==
LOC: MRI 13:27
PROVIDERS: PCP Internal Medicine; Visit Provider Otolaryngology
DX: H91.8X3 Other specified hearing loss, bilateral (principal)
CPT/HCPCS: 70544; 70553; A9575

== ENCOUNTER 2024-03-10 09:00 | Outpatient (CLI) | payer OTHER, SELFPAY ==
--- OUTSIDE RECORDS SUMMARY | 2024-03-10 09:03 | XMS_ITS | Clinical Summary ---
Author Organization [employer] [facility] Address [place], [place] [address] Care Team Providers Care Tax Auditor Name Role Phone Pcp, No Primary Care [...] CA, not melanoma~grprs: 70s GF dec of [place], GM with COPD, GF young of a [...] Comments Blood Pressure 131/83 04/07/2019 10:31 AM HONING MACHINE TRY OUT SETTER to wer Pulse 53 04/07/2019 10:31 AM HONING MACHINE TRY OUT SETTER Temperature 36.9 ??C (98.4 ??F) 04/07/2019 10:[address] Respiratory Rate 16 05/09/2018 12:43 PM HONING MACHINE TRY OUT SETTER Oxygen Saturation 94% 04/07/2019 10:31 AM HONING MACHINE TRY OUT SETTER Inhaled Oxygen Concentration - - Weight 85.7 kg (189 lb) 04/07/2019 10:31 AM HONING MACHINE TRY OUT SETTER Height 168.3 cm (5' 6.25) 04/07/2019 10:[address] Body Mass Index 30.28 04/07/2019 10:31 AM HONING MACHINE TRY OUT SETTER Plan of Treatment Health Maintenance Due Date Last Done Comments Tdap 1980 HIV for age 15-65 1984 Hepatitis C screening for age 18-79 1987 Tetanus booster 08/04/2013 08/05/2003 Colonoscopy through age 75 2014 Lipids for age 45-75 2014 03/22/2001, 03/22/2001, 06/20/2000 Mammogram for age 45-75 2014 08/13/19 11 (Completed outside of [facility]), 08/12/2009 (Completed outside of [facility]) Zoster (shingles) series for age 50+ (1 [...] this topic Medical Devices Implanted Type Area Driver Education Instructor Device Identifier Shelf Expiration Date Model / Serial / Lot [id number] 4breast 600cc Memorygel Rnd High Smooth Silcn [[id number]] Implanted:Qty: 1 on 04/24/2017 by Shahid Singh MD at [facility] Explanted:at [facility] (Quantity not on file) Left: Breast [employer] 09/21/2020 [id number] # / [id number] 8breast 600cc Memorygel Rnd High Smooth Silcn Implanted:Qty: 1 on 04/24/2017 by Shahid Singh MD at [facility] Explanted:at [facility] (Quantity not on file) Right: Breast [employer] 02/03/2021 [id number] # / [id number] Procedures Procedure Name Priority Date/Time Associated Diagnosis Comments SALESPERSON HOUSEHOLD APPLIANCES THIN PREP PAP SCREEN IMAGED Routine 03/25/2021 10:00 AM HONING MACHINE TRY OUT SETTER CHOLESTEROL,TOTAL Routine 03/22/2001 10: 20 AM HONING MACHINE TRY OUT SETTER from Last 3 Months or Most Recently Relevant to Health Maintenance Results * SALESPERSON HOUSEHOLD APPLIANCES THIN PREP PAP SCREEN IMAGED (03/25/2021 10:00 AM HONING MACHINE TRY OUT SETTER) Case Report Gynecologic Cytology Report ? Case: [id number] ? Authorizing Provider: ??Nicci Payne MD ?Collected: ? 03/25/2021 1000 ? Ordering Location: ? [facility] ?Received: ?03/29/2021 0914 ? First Screen: ?Kamlesh Naylor ? Specimen: ?SALESPERSON HOUSEHOLD APPLIANCES ThinPrep Vial Screening, Cervical/Vaginal ? 04/12/2021 10:38 AM [facility] LABORATORY-C ENTRAL LABORATORY INTERPRETATION/ RESULT NEGATIVE FOR INTRAEPITHELIAL LESION OR MALIGNANCY (NIL) (none) 04/12/2021 10:38 AM [facility]- ENTRAL LABORATORY IMEN ADEQUACY Satisfactory for evaluation Endocervical component present 04/12/2021 10:38 AM [facility] LABORATORYC ENTRAL LABORATORY HPV REQUEST HPV if ASCUS 04/12/2021 10:38 AM [facility] ENTRAL LABORATORY Last Pap Date 02/23/2021 04/12/2021 10:38 AM [facility] LABORATORY-C ENTRAL LABORATORY Last Pap Result 10:38 AM [facility] ENTRAL LABORATORY Comment:Unsatisfactory also 06/22/2018 unsatifactory Additional Information 04/12/2021 10:38 AM [facility] ENTRAL LABORATORY Comment: Interpreted at [facility], Central Laboratory - [address] [address] Automated Review Successful 04/12/2021 10:38 AM [facility] LABORATORY ENTRAL LABORATORY Comment:Specimen processed s uccessfully by automated hand bobbin cleaner device, ThinPrep Imaging System, [employer] Note The pap test is a screening technique, not a diagnostic procedure. It is used primarily to screen for squamous cancers and precursor lesions. Published studies have shown that it is subject to both false negative and false positive results. The pap test should not be used as the sole means to diagnose or exclude pre-malignant and malignant lesions. 04/12/2021 10:38 AM [facility] ENTRAL LABORATORY Other (Cervical/Vagina l) 03/25/2021 10:00 AM HONING MACHINE TRY OUT SETTER 03/29/2021 9:14 AM HONING MACHINE TRY OUT SETTER Nicci Payne MD PATHOLOGY/CYTOLOGY [facility] LABORATORY-CENTRAL LABORATORY [address] [place] [address], [place] * (ABNORMAL) CHOLESTEROL,TOTAL (03/22/2001 10:20 AM HONING MACHINE TRY OUT SETTER) CHOLESTEROL,TOT AL 219(A) 110 - 199 mg/dL 03/22/2001 10:2 0 AM HONING MACHINE TRY OUT SETTER Narrative 10/22/2003 12:20 PM CDT Ordered by [...] Code Status Discussion: Not Discussed Care Teams Tax Auditor Relationship Specialty Start Date End Date Pcp, No . PCP - General 05/29/13
--- NOTE | 2024-03-25 12:36 | W.PM.SLEEP ---
Sleep Study Details Details Interpreting Provider: Magdalena Castro Date of Sleep Study: 03/10/24 Sleep Study Details: STUDY TYPE:? Home on a 10 ? BMI:? 33.9 ORDERING PROVIDER:? Romana INDICATION:? Concerned about sleep apnea ? SLEEP SUMMARY:? 418 minutes monitored RESPIRATORY SUMMARY:? AHI 30.3 Low oxygen 70 4.3% of study oxygen less than 90% Snoring 98.4% PERIODIC LIMB MOVEMENTS OF SLEEP:? Not recorded CARDIAC:? Range 44-91, mean 55.5 beats per minute IMPRESSION:? Severe obstructive sleep apnea RECOMMENDATION: Recommend trial of CPAP AutoSet 4-17.
== END 2024-03-10 09:01 | disposition home or self-care (01) ==
PROVIDERS: PCP Internal Medicine; Visit Provider Otolaryngology
DX: G47.33 Obstructive sleep apnea (adult) (pediatric) (principal)
CPT/HCPCS: 95806

== ENCOUNTER 2024-03-17 16:25 | Outpatient (CLI) | payer OTHER, SELFPAY ==
--- OUTSIDE RECORDS SUMMARY | 2024-03-17 16:28 | XMS_ITS | Clinical Summary ---
Author Organization [employer] [facility] Address [place], [place] [address] Care Team Providers Care Seo Professional Name Role Phone Pcp, No Primary Care [...] Comments Blood Pressure 131/83 04/07/2019 10:31 AM BUSINESS DEVELOPMENT REPRESENTATIVE to wer Pulse 53 04/07/2019 10:31 AM BUSINESS DEVELOPMENT REPRESENTATIVE Temperature 36.9 ??C (98.4 ??F) 04/07/2019 10:[address] Respiratory Rate 16 05/09/2018 12:43 PM BUSINESS DEVELOPMENT REPRESENTATIVE Oxygen Saturation 94% 04/07/2019 10:31 AM BUSINESS DEVELOPMENT REPRESENTATIVE Inhaled Oxygen Concentration - - Weight 85.7 kg (189 lb) 04/07/2019 10:31 AM BUSINESS DEVELOPMENT REPRESENTATIVE Height 168.3 cm (5' 6.25) 04/07/2019 10:[address] Body Mass Index 30.28 04/07/2019 10:31 AM BUSINESS DEVELOPMENT REPRESENTATIVE Plan of Treatment Health Maintenance Due Date Last Done Comments Tdap 1980 HIV for age 15-65 1984 Hepatitis C screening for age 18-79 1987 Tetanus booster 08/04/2013 08/05/2003 Colonoscopy through age 75 2014 Lipids for age 45-75 2014 03/22/2001, 03/22/2001, 06/20/2000 Mammogram for age 45-75 2014 08/13/19 11 (Completed outside of [facility]), 08/12/2009 (Completed outside of [facility]) Zoster (shingles) series for age 50+ (1 [...] this topic Medical Devices Implanted Type Area Furniture Duster Device Identifier Shelf Expiration Date Model / Serial / Lot [id number] 4breast 600cc Memorygel Rnd High Smooth Silcn [[id number]] Implanted:Qty: 1 on 04/24/2017 by Shahid Singh MD at [facility] Explanted:at [facility] (Quantity not on file) Left: Breast [employer] [place] [employer] 09/21/2020 [id number] # / [id number] 8breast 600cc Memorygel Rnd High Smooth Silcn Implanted:Qty: 1 on 04/24/2017 by Shahid Singh MD at [facility] Explanted:at [facility] (Quantity not on file) Right: Breast [employer] [place] [employer] 02/03/2021 [id number] # / [id number] Procedures Procedure Name Priority Date/Time Associated Diagnosis Comments GREASE MAKER THIN PREP PAP SCREEN IMAGED Routine 03/25/2021 10:00 AM BUSINESS DEVELOPMENT REPRESENTATIVE CHOLESTEROL,TOTAL Routine 03/22/2001 10: 20 AM BUSINESS DEVELOPMENT REPRESENTATIVE from Last 3 Months or Most Recently Relevant to Health Maintenance Results * GREASE MAKER THIN PREP PAP SCREEN IMAGED (03/25/2021 10:00 AM BUSINESS DEVELOPMENT REPRESENTATIVE) Case Report Gynecologic Cytology Report ? Case: [id number] ? Authorizing Provider: ??Nicci Payne MD ?Collected: ? 03/25/2021 1000 ? Ordering Location: ? [facility] C[facility]TR[facility] ?Received: ?03/29/2021 0914 ? First Screen: ?Kamlesh Naylor ? Specimen: ?GREASE MAKER ThinPrep Vial Screening, Cervical/Vaginal ? 04/12/2021 10:38 AM [facility] LABORATORY-C ENTRAL LABORATORY INTERPRETATION/ RESULT NEGATIVE FOR INTRAEPITHELIAL LESION OR MALIGNANCY (NIL) (none) 04/12/2021 10:38 AM [facility]- ENTRAL LABORATORY IMEN ADEQUACY Satisfactory for evaluation Endocervical component present 04/12/2021 10:38 AM [facility] LABORATORYC ENTRAL LABORATORY HPV REQUEST HPV if ASCUS 04/12/2021 10:38 AM [facility] ENTRAL LABORATORY Last Pap Date 02/23/2021 04/12/2021 10:38 AM [facility] LABORATORY-C ENTRAL LABORATORY Last Pap Result 10:38 AM [facility] ENTRAL LABORATORY Comment:Unsatisfactory also 06/22/2018 unsatifactory Additional Information 04/12/2021 10:38 AM [facility] ENTRAL LABORATORY Comment: Interpreted at [facility], Central Laboratory - [address], [place] [address] Automated Review Successful 04/12/2021 10:38 AM [facility] LABORATORY ENTRAL LABORATORY Comment:Specimen processed s uccessfully by automated lead assistant manager device, ThinPrep Imaging System, [employer] Note The pap test is a screening technique, not a diagnostic procedure. It is used primarily to screen for squamous cancers and precursor lesions. Published studies have shown that it is subject to both false negative and false positive results. The pap test should not be used as the sole means to diagnose or exclude pre-malignant and malignant lesions. 04/12/2021 10:38 AM [facility] ENTRAL LABORATORY Other (Cervical/Vagina l) 03/25/2021 10:00 AM BUSINESS DEVELOPMENT REPRESENTATIVE 03/29/2021 9:14 AM BUSINESS DEVELOPMENT REPRESENTATIVE Nicci Payne MD PATHOLOGY/CYTOLOGY [facility] LABORATORY-CENTRAL LABORATORY [address] [place] [address], [place] * (ABNORMAL) CHOLESTEROL,TOTAL (03/22/2001 10:20 AM BUSINESS DEVELOPMENT REPRESENTATIVE) CHOLESTEROL,TOT AL 219(A) 110 - 199 mg/dL 03/22/2001 10:2 0 AM BUSINESS DEVELOPMENT REPRESENTATIVE Narrative 10/22/2003 12:20 PM CDT Ordered by [...] Code Status Discussion: Not Discussed Care Teams Seo Professional Relationship Specialty Start Date End Date Pcp, No . PCP - General 05/29/13
--- NOTE | 2024-03-17 16:45 | CRLHL7_ITS ---
For Patients: As a result of the Century Cures Act, medical imaging exams and procedure reports are released immediately into your electronic medical record. You may view this report before your referring provider. If you have questions, please contact your health care provider. Indication: Dizziness. Technique: CT of the temporal bones performed without IV contrast. Comparison: None relevant available at this institution. Findings: RIGHT: The external auditory canal is patent. The tympanic membrane is not thickened. Mild to moderate opacification of the mesial tympanum. The scutum is sharp. Ossicles are intact without evidence of erosion. Mild to moderate opacification of the mastoid air cells. The inner ear structures including the cochlea, semicircular canals, vestibule and vestibular aqueduct appear unremarkable. Osseous IAC is intact. The path of the facial nerve canal is preserved. LEFT: The external auditory canal is patent. The tympanic membrane is not thickened. The mesotympanum is well aerated. The scutum is sharp. Ossicles are intact without evidence of erosion. The epitympanum and mastoid air cells appear clear. The inner ear structures including the cochlea, semicircular canals, vestibule and vestibular aqueduct appear unremarkable. Osseous IAC is intact. The path of the facial nerve canal is preserved. Impression: Right temporal bone: 1. Mild to moderate opacification of the mesotympanum and mastoid air cells. No osseous erosions to suggest cholesteatoma at this time. Left temporal bone: 1. Unremarkable. Please note that all CT scans at this facility use dose modulation, iterative reconstruction, and/or weight-based dosing when appropriate to reduce radiation dose to as low as reasonably achievable. Dictated by Vj Benavidez MD @ 03/18/2024 11:25:17 AM (Electronically Signed)
== END 2024-03-17 16:26 | disposition home or self-care (01) ==
LOC: CT 16:26
PROVIDERS: PCP Internal Medicine; Visit Provider Otolaryngology
DX: R42 Dizziness and giddiness (principal)
CPT/HCPCS: 70480

== ENCOUNTER 2024-04-24 08:00 | Outpatient (CLI) | payer OTHER, SELFPAY | END 2024-04-24 08:01 | disposition home or self-care (01) | LOC: NFLDREF 11:40 | PROVIDERS: PCP Internal Medicine; Referring Provider Internal Medicine; Visit Provider Obstetrics & Gynecology | DX: E78.5 Hyperlipidemia, unspecified (principal) | CPT/HCPCS: 80061 ==

== ENCOUNTER 2025-04-28 10:06 | Outpatient (CLI) | payer OTHER, SELFPAY | END 2025-04-28 10:07 | disposition home or self-care (01) | PROVIDERS: PCP Internal Medicine; Visit Provider Obstetrics & Gynecology | DX: Z01.419 Encounter for gynecological examination (general) (routine) without abnormal findings (principal) | CPT/HCPCS: 80048; 80061; 84443 ==